=== PATIENT | female | born 1955 | race Caucasian/White ===

== ENCOUNTER 2021-01-18 11:42 | Outpatient (REF) | payer MEDICARE, SELFPAY ==
--- NOTE | ~2021-01-18 | XR_ITS ---
EXAMINATION: XR HIP, RIGHT CLINICAL INFORMATION: Right hip pain. COMPARISON: None TECHNIQUE: Two views of the right hip. FINDINGS: Bones and soft tissues are normal. No fracture. Alignment is anatomic. Hip joint space is maintained. XR/XR hip RT min 2V IMPRESSION: Unremarkable right hip exam.
== END 2021-01-18 11:43 | disposition home or self-care (01) ==
LOC: HO.HMGCX 11:42
PROVIDERS: PCP Internal Medicine; Visit Provider Internal Medicine
DX: M25.551 Pain in right hip (principal)
CPT/HCPCS: 73502

== ENCOUNTER → 2021-01-22 09:41 | Outpatient (BNVA) | payer MEDICARE, SELFPAY | PROVIDERS: PCP Internal Medicine; Visit Provider Physician Assistant | DX: M70.61 Trochanteric bursitis, right hip (principal) | CPT/HCPCS: 99202 ==

== ENCOUNTER 2021-07-08 07:27 | Outpatient (REF) | payer MEDICARE, SELFPAY ==
--- NOTE | ~2021-07-08 | MM_ITS ---
EXAMINATION: MM SCREENING DIGITAL BREAST TOMOSYNTHESIS, BILATERAL CLINICAL INFORMATION: Screening. Asymptomatic. The lifetime risk of breast cancer based on the Tyrer-Cuzick Model is 12%. COMPARISON: Mammography: 07/02/2020, 06/27/2019, 04/24/2018 TECHNIQUE: Digital breast tomosynthesis is performed in both the craniocaudal and mediolateral oblique views along with computer-aided detection (CAD). Synthesized 2D images are generated from the tomosynthesis. FINDINGS: The breasts are heterogeneously dense, which may obscure small masses (ACR BI-RADS breast composition Category c). Breast tissue composition borders on average fibroglandular. Scattered bilateral parenchymal asymmetries are stable. There is no developing density. No interval mass or architectural abnormality. Again, there are scattered punctate calcifications in both breasts. There are no significant changes. The axilla and skin contours are unremarkable. MM/MM tomosynthesis screening BI IMPRESSION: No mammographic evidence of malignancy. ASSESSMENT: BI-RADS 2: Benign RECOMMENDATION: Routine annual mammography screening. This patient's information was entered into a reminder system with a target due date for their next mammogram.
== END 2021-07-08 07:28 | disposition home or self-care (01) ==
LOC: HO.MAMMO 07:27
PROVIDERS: PCP Internal Medicine; Visit Provider Internal Medicine
DX: Z12.31 Encounter for screening mammogram for malignant neoplasm of breast (principal)
CPT/HCPCS: 77063; 77067

== ENCOUNTER 2021-09-13 06:26 | Outpatient (REF) | payer MEDICARE, SELFPAY ==
[2021-09-13 12:17] LABS: Vitamin D 25-OH Total 72.4 ng/mL (>30)
[2021-09-13 12:24] LABS: Alanine Aminotransferase 11 U/L (0-31); Anion Gap 14 (12-20); Aspartate Amino Transferase 17 U/L (5-31); Blood Urea Nitrogen 13 mg/dL (9-16); Calcium 9.2 mg/dL (8.4-10.2); Carbon Dioxide 28 mmol/L (22-29); Chloride 103 mmol/L (96-108); Cholesterol 214 mg/dL; Estimated Glomerular Filt Rate > 60; Glucose Fasting 74 mg/dL (60-99); HDL Cholesterol 81 mg/dL; LDL Cholesterol Calculated 113 mg/dl; Potassium 4.5 mmol/L (3.3-5.1); Sodium 140 mmol/L (135-145); Triglycerides 101 mg/dL
== END 2021-09-13 06:27 | disposition home or self-care (01) ==
LOC: HO.HMGCLDS 06:26
PROVIDERS: PCP Internal Medicine; Visit Provider Internal Medicine
DX: E78.5 Hyperlipidemia, unspecified (principal); I10 Essential (primary) hypertension; M85.852 Other specified disorders of bone density and structure, left thigh; Z78.0 Asymptomatic menopausal state
CPT/HCPCS: 36415; 80048; 80061; 82306; 84450; 84460

== ENCOUNTER 2022-07-28 08:44 | Outpatient (REF) | payer MEDICARE, SELFPAY ==
--- NOTE | ~2022-07-28 | MM_ITS ---
EXAMINATION: MM SCREENING DIGITAL BREAST TOMOSYNTHESIS, BILATERAL CLINICAL INFORMATION: Screening. Asymptomatic. The lifetime risk of breast cancer based on the Tyrer-Cuzick Model is 16%. COMPARISON: Mammography: 07/08/2021, 07/02/2020, 06/27/2019 TECHNIQUE: Digital breast tomosynthesis is performed in both the craniocaudal and mediolateral oblique views along with computer-aided detection (CAD). Synthesized 2D images are generated from the tomosynthesis. FINDINGS: There are scattered areas of fibroglandular density (ACR BI-RADS breast composition Category b). Parenchymal pattern is similar to prior exams. There is no interval mass or architectural abnormality or developing density. The axilla are unremarkable. Again, there are scattered bilateral punctate calcifications. Dermal calcifications again noted medial left breast. There are questionable increased loosely grouped round calcifications central 9:30 mid left breast. Patient will be recalled for additional imaging. MM/MM tomosynthesis screening BI IMPRESSION: Left: -Question increased loosely grouped calcifications central inner left breast. Right: -No mammographic evidence of malignancy. ASSESSMENT: BI-RADS 0: Incomplete - Need Additional Imaging Evaluation RECOMMENDATION: 1. Additional views of the left breast (magnification CC, magnification LM). 2. Radiology department staff will contact the patient for additional imaging. This patient's information was entered into a reminder system with a target due date for their next mammogram.
== END 2022-07-28 08:45 | disposition home or self-care (01) ==
LOC: HO.MAMMO 08:44
PROVIDERS: PCP Internal Medicine; Visit Provider Internal Medicine
DX: Z12.31 Encounter for screening mammogram for malignant neoplasm of breast (principal)
CPT/HCPCS: 77063; 77067

== ENCOUNTER 2022-08-10 14:03 | Outpatient (REF) | payer MEDICARE, SELFPAY ==
--- NOTE | ~2022-08-10 | MM_ITS ---
EXAMINATION: MM DIAGNOSTIC DIGITAL MAMMOGRAPHY, LEFT CLINICAL INFORMATION: Recall from screening for questionable increased loosely grouped round calcifications mid left breast. COMPARISON: Mammography: 07/28/2022, 07/08/2021, 07/02/2020 TECHNIQUE: Digital mammography is performed in the following views: Magnification left CC, magnification left LM. FINDINGS: There are scattered areas of fibroglandular density (ACR BI-RADS breast composition Category b). The additional magnification views show scattered isolated and small grouped round and rim calcifications. There are loosely grouped round calcifications 1:00 position slightly increased in number since 2019. They have a benign appearance similar to other calcifications and will be reassessed again in 6 months. Results are discussed with the patient at time of visit. MM/MM added views LT IMPRESSION: Loosely grouped benign-appearing round calcifications 1:00 position slightly increased from prior studies. ASSESSMENT: BI-RADS 3: Probably Benign RECOMMENDATION: Diagnostic left mammography in 6 months. This patient's information was entered into a reminder system with a target due date for their next mammogram.
== END 2022-08-10 14:04 | disposition home or self-care (01) ==
LOC: HO.MAMMO 14:03
PROVIDERS: PCP Internal Medicine; Visit Provider Internal Medicine
DX: R92.1 Mammographic calcification found on diagnostic imaging of breast (principal)
CPT/HCPCS: 77065

== ENCOUNTER 2023-02-07 14:27 | Outpatient (REF) | payer MEDICARE, SELFPAY ==
--- NOTE | ~2023-02-07 | MM_ITS ---
EXAMINATION: MM DIAGNOSTIC DIGITAL BREAST TOMOSYNTHESIS, LEFT CLINICAL INFORMATION: Short interval six-month follow-up probable benign loosely grouped calcifications central upper left breast. Family history breast cancer mother, sister, aunt. TC score 14. COMPARISON: Mammography: 08/10/2022, 07/28/2022 (BI-RADS 0), 07/08/2021, 07/02/2020, 06/27/2019 TECHNIQUE: Digital breast tomosynthesis is performed in both the craniocaudal and mediolateral oblique views along with computer-aided detection (CAD). Synthesized 2D images are generated from the tomosynthesis. Additional magnification left CC and magnification left ML views are obtained. FINDINGS: There are scattered areas of fibroglandular density (ACR BI-RADS breast composition Category b). Parenchymal pattern is similar to prior studies and there is no significant mass, developing density, architectural abnormality. There are some incidental benign dermal calcifications medial left breast. Some calcifications loosely grouped round central 11:00 position for follow-up are without significant change from prior studies. They have a benign appearance and will be reassessed again at time of annual bilateral mammography, due in 6 months. Results are provided to the patient at time of visit by the technologist. MM/MM tomosynthesis diagnostic LT IMPRESSION: -No mammographic evidence of malignancy. -Calcifications for follow-up no significant changes from prior exams. ASSESSMENT: BI-RADS 3: Probably Benign RECOMMENDATION: Diagnostic mammography at time of annual bilateral exam, due in 6 months. This patient's information was entered into a reminder system with a target due date for their next mammogram.
--- NOTE | ~2023-02-07 | MM_ITS ---
EXAMINATION: BONE DENSITOMETRY CLINICAL INDICATION: Other specified disorders of bone density and structure, left thigh. COMPARISON: Previous BD dated 07/02/2020 and baseline BD dated 10/22/2007. TECHNIQUE: Using a [employer] DXA System (software version: 13.1) manufactured by [employer], dual-energy x-ray absorptiometry was performed of the lumbar spine and left hip. The images are of good technical quality. Summary results are attached. FINDINGS: AP SPINE L1-L4: Current: BMD 1.064 g/cm2, Z-score 1.0, T-score -1.0, normal, 1.8% decrease from previous, 10.7% decrease from baseline (<5% change is not significant). Prior: BMD 1.084 g/cm2. Baseline: BMD 1.191 g/cm2. LEFT FEMUR, NECK: Current: BMD 0.746 g/cm2, Z-score -0.3, T-score -2.1, osteopenia. Prior: BMD 0.769 g/cm2. Baseline: BMD 0.856 g/cm2. LEFT FEMUR, TOTAL: Current: BMD 0.804 g/cm2, Z-score 0.0, T-score -1.6, osteopenia, 5.9% decrease from previous, 17.3% decrease from baseline (<5% change is not significant). Prior: BMD 0.854 g/cm2. Baseline: BMD 0.972 g/cm2. IDENTIFIED RISK FACTORS: Menopause. HISTORY OF FRACTURE: None listed. MEDICATIONS: Vitamin D. MM/XR DEXA axial skeleton IMPRESSION: 1. DIAGNOSIS: Osteopenia based on the lowest T-score value of -2.1 in the femoral neck applying World Health Organization criteria. 2. 10-YEAR FRACTURE RISK PREDICTION, FRAX: Major osteoporotic fracture (clinical spine, forearm, hip or shoulder) 10.8%. Hip fracture 2.2%. 3. Treatment Recommendations: NOF guidelines recommend consideration for treatment in postmenopausal women and men age 50 and older presenting with the following: -A hip or vertebral (clinical or morphometric) fracture. -T-score less than or equal to -2.5 at the femoral neck or spine after appropriate evaluation to exclude secondary causes. -Low bone mass at the hip or spine and a 10-year fracture probability by FRAX of greater than or equal to 3% for hip fracture or greater than or equal to 20% for major osteoporotic fracture based on the [place] adapted WHO algorithm. 4. Other Recommendations: All treatment decisions require clinical judgment and consideration of individual patient factors, including patient preferences, comorbidities, previous drug use, risk factors not captured in the FRAX model (e.g. frailty, falls, vitamin D deficiency, increased bone turnover, interval significant decline in bone density) and possible under or overestimation of fracture risk by FRAX. Additional medical evaluation for secondary cause of low bone mineral density may be appropriate. FUTURE SCAN RECOMMENDATION: People with diagnosed cases of osteoporosis or at high risk for fracture should have regular bone mineral density tests. For patients eligible for Medicare, routine testing is allowed once every 2 years. The testing frequency can be increased to one year for patients who have rapidly progressing disease, those who are receiving or discontinuing medical therapy to restore bone mass, or have additional risk factors.
== END 2023-02-07 14:28 | disposition home or self-care (01) ==
LOC: HO.MAMMO 14:27
PROVIDERS: Visit Provider Internal Medicine
DX: R92.1 Mammographic calcification found on diagnostic imaging of breast (principal); Z13.820 Encounter for screening for osteoporosis; Z78.0 Asymptomatic menopausal state; M85.852 Other specified disorders of bone density and structure, left thigh
CPT/HCPCS: 77061; 77065; 77080

== ENCOUNTER 2023-04-25 12:57 | Outpatient (AMB) | payer MEDICARE, SELFPAY ==
--- NOTE | 2023-04-25 13:01 | A.OFFPC_ITS ---
Vital Signs 04/25/23 13:02 Height 5 ft 4.5 in Weight 125 lb BMI 21.1 BP 110/68 Blood Pressure Location Lt brachial Position Sitting Pulse 70 Pulse Source Pulse Oximeter Pulse Oximetry (%) 100 Oxygen Delivery Method Room Air Intake Visit Reasons: 6 Month follow up HTN Intake Note: Patient here for routine follow up for hypertension. Allergies No Known Allergies Allergy (Verified 04/25/23 13:31) Medication List - Last Reconciled 04/25/23 by Kayla Parekh MD lisinopril-hydrochlorothiazide 10-12.5 mg 1 tab PO DAILY lorazepam 0.5 mg PO DAILY PRN Tobacco use date assessed: 04/25/23 Fall risk assessment: No Falls in past year Last assessed Fall Risk: 04/25/23 HPI 6 Month follow up HTN HPI Details 68-year-old lady with hypertension, here today for follow-up. Currently on lisinopril-HCTZ 10-12.5 mg tablet which he takes once a day in a.m., compliant with taking medications and has been compliant with a low-salt diet and gets regular exercise. Blood pressure today is within normal limits. No new complaints at present time [facility] Medical History Lateral pain of right hip Anxiety Osteopenia of left femoral neck Menopause Dyslipidemia Essential hypertension Surgical History History of appendectomy Family History Father HTN (hypertension) Oral cancer Raynauds phenomenon Mother HTN (hypertension) Alcoholism Breast cancer Maternal Grandmother Alcoholism Sister No problems noted. Social History Alcohol intake: current Patient Tobacco Use Status: Former Tobacco user Current occupational status: retired Hearing needs: No Vision needs: Yes Questionnaire AUDIT C Alcohol Use Questionnaire (AUDIT-C) 1. How often do you have a drink containing alcohol?: 2-3 times a week 2. How many drinks containing alcohol do you have on a typical day when you are drinking?: 1 or 2 3. How often do you have six or more drinks on one occasion?: Never Total Score: 3 Score Reviewed/Action Taken: No Review of Systems Const Denies fatigue and Denies weakness ENT Reports no additional complaints Card Denies chest pain, Denies chest pain at rest, Denies irregular heart rhythm, Denies lightheadedness, Denies dyspnea and Denies dyspnea on exertion Resp Denies chest congestion, Denies cough, Denies dyspnea and Denies dyspnea on exertion GI Denies change in bowel habits Musc Denies back pain, Denies joint swelling and Denies muscle weakness Neuro Denies weakness Endo Denies fatigue Physical exam (Primary Care) Vital Signs: Last Vital Signs Pulse 70 04/25/23 13:02 BP 110/68 04/25/23 13:02 Pulse Ox 100 04/25/23 13:02 Oxygen Delivery Method Room Air 04/25/23 13:02 BMI result Body Mass Index 21.1 Tobacco/Smoking Status: Tobacco use Status Tobacco use date assessed 04/25/23 04/25/23 13:05 Patient Tobacco Use Status Former Tobacco user 04/25/23 13:05 Const General: comfortable, no acute distress and alert Orientation/consciousness: patient oriented x3 HENMT Ears: external ears normal General nose exam: Normal external nose present Mouth: oropharynx normal and moist mucous membranes Eyes General: appearance normal, both eyes and all related structures Neck Neck: Yes full ROM, Yes no lymphadenopathy and Yes supple Resp Effort & Inspection: normal respiratory effort and able to speak in complete sentences Auscultation: clear to auscultation bilaterally Cardio Rate: regular rate Rhythm: regular rhythm Heart sounds: S1 normal heart sound present and S2 normal heart sound present GI Palpation (GI): Soft to palpation, nontender and no masses Auscultation: normal bowel sounds Neuro General: patient oriented x3, gait normal, tone normal, moves all extremities, Normal light touch and pain sensation and no focal motor deficits Cranial nerves: Yes CN's II-XII intact bilaterally Cognition (Neuro): normal cognition Extrem General: Yes full ROM, Yes no joint enlargement, Yes no clubbing, cyanosis or edema and Yes no calf tenderness Assessment and Plan Assessment & Plan (1) Dyslipidemia: Code(s): E78.5 - Hyperlipidemia, unspecified (2) Essential hypertension: Code(s): I10 - Essential (primary) hypertension Plan Blood pressure is stable and controlled on present treatment continue with healthy eating habits and getting regular exercise. Will check a basic metabolic panel, lipids and liver enzymes. Orders: Orders Alanine Aminotransferase 05/01/23 E78.5 - Hyperlipidemia, unspecified, I10 - Essential (primary) hypertension, M85.852 - Other specified disorders of bone density and structure, left thigh, Z78.0 - Asymptomatic menopausal state Vitamin D 25-OH Total 05/01/23 E78.5 - Hyperlipidemia, unspecified, I10 - Essential (primary) hypertension, M85.852 - Other specified disorders of bone density and structure, left thigh, Z78.0 - Asymptomatic menopausal state Basic Metabolic Panel Fasting 05/01/23 E78.5 - Hyperlipidemia, unspecified, I10 - Essential (primary) hypertension, M85.852 - Other specified disorders of bone density and structure, left thigh, Z78.0 - Asymptomatic menopausal state Lipid Panel 05/01/23 E78.5 - Hyperlipidemia, unspecified, I10 - Essential (primary) hypertension, M85.852 - Other specified disorders of bone density and structure, left thigh, Z78.0 - Asymptomatic menopausal state Aspartate Amino Transferase 05/01/23 E78.5 - Hyperlipidemia, unspecified, I10 - Essential (primary) hypertension, M85.852 - Other specified disorders of bone density and structure, left thigh, Z78.0 - Asymptomatic menopausal state Coding Level of Care Code Est Pt Level 3 (84984) Diagnoses Dyslipidemia E78.5 Essential hypertension I10
[2023-04-25 13:02] VITALS: BP 110/68; PULSE 70; O2SAT 100; BMI 21.1
== END 2023-04-25 13:44 | disposition home or self-care (01) ==
LOC: HO.HMGC 12:57
PROVIDERS: PCP Internal Medicine; Visit Provider Internal Medicine
DX: E78.5 Hyperlipidemia, unspecified (principal); I10 Essential (primary) hypertension
CPT/HCPCS: 99213

== ENCOUNTER 2023-05-01 07:47 | Outpatient (REF) | payer MEDICARE, SELFPAY ==
[2023-05-01 12:08] LABS: Alanine Aminotransferase 13 U/L (0-31); Anion Gap 13 (12-20); Aspartate Amino Transferase 17 U/L (5-31); Blood Urea Nitrogen 15 mg/dL (9-16); Calcium 9.5 mg/dL (8.4-10.2); Carbon Dioxide 29 mmol/L (22-29); Chloride 101 mmol/L (96-108); Cholesterol 213 mg/dL; Estimated Glomerular Filt Rate > 60; Glucose Fasting 84 mg/dL (60-99); HDL Cholesterol 70 mg/dL; LDL Cholesterol Calculated 126 mg/dl; Potassium 4.3 mmol/L (3.3-5.1); Sodium 139 mmol/L (135-145); Triglycerides 85 mg/dL
[2023-05-01 12:14] LABS: Vitamin D 25-OH Total 47.7 ng/mL (>30)
== END 2023-05-01 07:48 | disposition home or self-care (01) ==
LOC: HO.HMGCLDS 07:47
PROVIDERS: PCP Internal Medicine; Visit Provider Internal Medicine
DX: E78.5 Hyperlipidemia, unspecified (principal); I10 Essential (primary) hypertension; M85.852 Other specified disorders of bone density and structure, left thigh; Z78.0 Asymptomatic menopausal state
CPT/HCPCS: 36415; 80048; 80061; 82306; 84450; 84460

== ENCOUNTER 2023-07-27 14:42 | Outpatient (REF) | payer MEDICARE, SELFPAY ==
--- NOTE | ~2023-07-27 | MM_ITS ---
EXAMINATION: MM DIAGNOSTIC DIGITAL BREAST TOMOSYNTHESIS, BILATERAL CLINICAL INFORMATION: Diagnostic for 6 month follow-up left breast calcifications. Patient also due for bilateral screening. COMPARISON: Mammography: 02/07/2023, 08/10/2022, 07/28/2022, 07/08/2021, and dating back to 2018. TECHNIQUE: Digital breast tomosynthesis is performed in both the craniocaudal and mediolateral oblique views along with computer-aided detection (CAD). Synthesized 2D images are generated from the tomosynthesis. In addition, 2-D left magnification CC and ML views were performed. FINDINGS: There are scattered areas of fibroglandular density (ACR BI-RADS breast composition Category b). There are stable essentially punctate grouped calcifications in the slightly medial slightly upper left breast, middle one third, which have a nonaggressive appearance and are probably benign. No significant pleomorphism, linear or casting forms, or suspicious morphology. Although grouped, they have a rounded punctate morphology. Findings are probably benign. Six-month interval follow-up left breast mammography recommended to ensure stability including standard magnification views. Otherwise, there are no suspicious masses, suspicious grouped calcifications, or areas of architectural distortion in either breast. The parenchymal pattern is stable from prior exams. MM/MM tomosynthesis diagnostic BI IMPRESSION: Probably benign calcifications left breast upper and medial aspect, middle one third. Recommend six-month interval follow-up mammography including standard magnification views to ensure stability. No suspicious findings in the right breast. ASSESSMENT: BI-RADS BI-RADS 3 - Probably benign finding(s) - 6 month follow-up suggested RECOMMENDATION: 6 Month F/U Results were provided to the patient at time of visit by the technologist. This patient's information was entered into a reminder system with a target due date for their next mammogram.
== END 2023-07-27 14:43 | disposition home or self-care (01) ==
LOC: HO.MAMMO 14:42
PROVIDERS: PCP Internal Medicine; Visit Provider Internal Medicine
DX: R92.1 Mammographic calcification found on diagnostic imaging of breast (principal)
CPT/HCPCS: 77062; 77066

== ENCOUNTER → 2023-07-27 15:00 | Outpatient (BNV) | payer MEDICARE, SELFPAY | PROVIDERS: PCP Internal Medicine; Visit Provider Radiology Diagnostic Radiology | DX: R92.1 Mammographic calcification found on diagnostic imaging of breast (principal) | CPT/HCPCS: 77062; 77066; G0279 ==

== ENCOUNTER 2023-10-24 07:02 | Outpatient (REF) | payer MEDICARE, SELFPAY ==
[2023-10-24 11:38] LABS: Alanine Aminotransferase 10 U/L (0-31); Aspartate Amino Transferase 16 U/L (5-31); Cholesterol 208 mg/dL (<200); HDL Cholesterol 69 mg/dL (>40); LDL Cholesterol Calculated 122 mg/dL (<100); Triglycerides 86 mg/dL (<150)
== END 2023-10-24 07:03 | disposition home or self-care (01) ==
LOC: HO.HMGCLDS 07:02
PROVIDERS: PCP Internal Medicine; Visit Provider Internal Medicine
DX: M85.852 Other specified disorders of bone density and structure, left thigh (principal); E78.5 Hyperlipidemia, unspecified; Z78.0 Asymptomatic menopausal state
CPT/HCPCS: 36415; 80061; 82306; 84450; 84460

== ENCOUNTER 2023-10-26 10:37 | Outpatient (AMB) | payer MEDICARE, SELFPAY ==
[2023-10-26 11:17] VITALS: BP 110/62; PULSE 65; O2SAT 100; BMI 21.3
--- NOTE | 2023-10-26 11:17 | A.OFFPC_ITS ---
Vital Signs 10/26/23 11:17 Height 5 ft 4.5 in Weight 126 lb 4 oz BMI 21.3 BP 110/62 Blood Pressure Location Rt brachial Position Sitting Pulse 65 Pulse Source Pulse Oximeter Pulse Oximetry (%) 100 Oxygen Delivery Method Room Air Intake Visit Reasons: 6 month follow up Intake Note: Pt is here to follow up for lab results Allergies No Known Allergies Allergy (Verified 10/26/23 11:30) Medication List - Last Reconciled 10/26/23 by Kayla Parekh MD lisinopril-hydrochlorothiazide 10-12.5 mg 1 tab PO DAILY lorazepam 0.5 mg PO DAILY PRN Tobacco use date assessed: 10/26/23 Fall risk assessment: No Falls in past year Last assessed Fall Risk: 10/26/23 Dental Screening Dental Screen Date: 10/26/23 Did you have a dental visit in the last 12 months?: Yes Did you have a dental problem in the last 6 months where you did not have access to dental care?: No Was dental information given to patient?: Patient has dentist HPI 6 month follow up HPI Details 68-year-old lady here today for follow-u p on her lipids. Has been following a low-cholesterol diet and has been exercising regularly recent fasting labs showed improvement in her total cholesterol and LDL cholesterol level, with normal triglycerides and HDL cholesterol . Vitamin-D level also on recent labs was within normal limits. Complaining of dry itchy skin on right forearm. Has been applying regular Eucerin cream which affords only temporary relief. [facility] Medical History (Updated 10/26/23 @ 11:42 by Kayla Parekh MD) Dry skin dermatitis Lateral pain of right hip Anxiety Osteopenia of left femoral neck Menopause Dyslipidemia Essential hypertension Surgical History History of appendectomy Family History Father HTN (hypertension) Oral cancer Raynauds phenomenon Mother HTN (hypertension) Alcoholism Breast cancer Maternal Grandmother Alcoholism Sister No problems noted. Social History Alcohol intake: current Patient Tobacco Use Status: Former Tobacco user e-Cigarette/Vaping Use: Never Used Second Hand Smoke Exposure: No Current occupational status: retired Hearing needs: No Vision needs: Yes Questionnaire PHQ-9 Over the last 2 weeks, how often have you been bothered by any of the following problems? 1. Little interest or pleasure in doing things: not at all 2. Feeling down, depressed, or hopeless: not at all 3. Trouble falling or staying asleep, or sleeping too much: not at all 4. Feeling tired or having little energy: not at all 5. Poor appetite or overeating: not at all 6. Feeling bad about yourself - or that you are a failure or have let yourself or your family down: not at all 7. Trouble concentrating on things, such as reading the newspaper or watching television: not at all 8. Moving or speaking so slowly that other people could have noticed. Or the opposite - being so fidgety or restless that you have been moving around a lot more than usual: not at all 9. Thoughts that you would be better off or of hurting yourself in some way: not at all Total score: 0 Depression Screening Interpretation: Negative Depression Screening Done: Yes 49618 - PHQ-9 Billing: Yes Source: Developed by Drs. Markel Hernandez, Cydney Padgett, Javon Tinoco and colleagues, with an educational stefan from [employer]. Thrive Questionnaire Date Thrive assessed: 10/26/23 I am a: Patient What is your living situation today?: I have a steady place to live Within the past 12 months, did the food you bought not last and you didn't have the money to get more?: Never true Within the past 12 months, did you worry whether your food would run out before you got money to buy more?: Never true Do you have trouble paying for medicines?: No Do you have trouble getting transportation to medical appointments?: No Do you have trouble paying your heating and electricity bill?: No Do you have trouble taking care of your child, family member or friend?: No Do you have trouble with day-to-day activities such as bathing, preparing meals, shopping, managing finances, etc.?: No Are you currently unemployed and looking for a job?: No Are you interested in more education?: No AUDIT C Alcohol Use Questionnaire (AUDIT-C) 1. How often do you have a drink containing alcohol?: Never Total Score: 0 RAMONA-7 AMB Questionnaire RAMONA-7 Date RAMONA - 7 assessed: 10/26/23 Feeling nervous, anxious, or on edge: 0 = Not at all Not being able to stop or control worryin = Not at all Worrying too much about different things: 0 = Not at all Trouble relaxin = Not at all Being so restless that it is hard to sit still: 0 = Not at all Becoming easily annoyed or irritable: 0 = Not at all Feeling afraid as if something awful might happen: 0 = Not at all Total RAMONA-7 score (0-4 normal; 5-9 mild; 10-14 moderate; 15-21 severe): 0 Source: Developed by Drs. Markel Hernandez, Cydney Padgett, Javon Tinoco and colleagues, with an educational stefan from [employer]. RAMONA-7 Assessment Billing RAMONA-7 Assessment Tool: RAMONA-7 Assessment 26353 Review of Systems Const Denies fatigue and Denies weakness ENT Reports no additional complaints Card Denies chest pain, Denies chest pain at rest, Denies irregular heart rhythm, Denies lightheadedness, Denies dyspnea and Denies dyspnea on exertion Resp Denies chest congestion, Denies cough, Denies dyspnea and Denies dyspnea on exertion GI Denies change in bowel habits Musc Denies back pain, Denies joint swelling and Denies muscle weakness Skin/Breast Reports as per HPI Neuro Denies weakness Endo Denies fatigue Physical exam (Primary Care) Vital Signs: Last Vital Signs Pulse 65 10/26/23 11:17 BP 110/62 10/26/23 11:17 Pulse Ox 100 10/26/23 11:17 Oxygen Delivery Method Room Air 10/26/23 11:17 BMI result Body Mass Index 21.3 Tobacco/Smoking Status: Tobacco use Status Tobacco use date assessed 10/26/23 10/26/23 11:19 Patient Tobacco Use Status Former Tobacco user 10/26/23 11:17 e-Cigarette/Vaping Use Never Used 10/26/23 11:19 Depression Screening Interpretation: Negative Const General: comfortable, no acute distress and alert Orientation/consciousness: patient oriented x3 Eyes General: appearance normal, both eyes and all related structures Neck Neck: Yes full ROM, Yes no lymphadenopathy and Yes supple Resp Effort & Inspection: normal respiratory effort and able to speak in complete sentences Auscultation: clear to auscultation bilaterally Cardio Rate: regular rate Rhythm: regular rhythm Heart sounds: S1 normal heart sound present and S2 normal heart sound present Skin Other: Dry skin noted on both forearms right more than the left Neuro General: patient oriented x3, gait normal, tone normal, moves all extremities, Normal light touch and pain sensation and no focal motor deficits Cranial nerves: Yes CN's II-XII intact bilaterally Cognition (Neuro): normal cognition Gait exam (Neuro): Normal gait present Extrem General: Yes full ROM, Yes no joint enlargement, Yes no clubbing, cyanosis or edema and Yes no calf tenderness Results Reviewed Results Reviewed: RUN: 10/26/23 1129 PAGE 1 [facility] [address] [place] [id number] Loom Changeover Operator: Rubens Meyers M.D. Specimen Inquiry Name: AraOlimpia Powers Age/Sex: 68/F : 1955 [place] [id number] Unit#: [id number] Attend Dr: Kayla Parekh MD Re10/24/23 Status: DEP [facility] Disch: SPEC : [id number] SHIMA: 10/24/23 STATUS: COMP REQ : [id number] RECD: 10/24/[address]: Kayla Parekh MD COMP: 10/24/23 ENTERED: 10/24/[address] [facility] DR: ORDERED: AST, ALT, Lipid Panel, Vitamin D 25-OH Test Result Flag Reference Site AST (GOT) 16 5-31 U/L ALT (GPT) 10 0-31 U/L Triglyceride 86 <150 mg/dL Desirable Triglyceride: less than 150 mg/dL Borderline High Triglyceride 150-199 mg/dL High Triglyceride: 200-499 mg/dL Very High Triglyceride: greater than or equal to 5OO mg/dL Cholesterol 208 H <200 mg/dL Desirable Cholesterol: less than 200 mg/dL Borderline High Cholesterol: 200-239 mg/dL High Cholesterol: greater than 239 mg/dL LDL Calculated 122 H <100 mg/dL Desirable LDL: less than 100 mg/dL Near Optimal/Above Optimal LDL: 110-129 mg/dL Borderline High LDL: 130-159 mg/dL High LDL: 160-189 mg/dL Very High LDL: greater than or equal to 190 mg/dL HDL 69 >40 mg/dL Desirable HDL: greater than 40 mg/dL Note: This HDL assay may give artificially low results in patients with liver disease. Vit D 25-OH Tot 82.0 >30 ng/mL Health Based Reference Values* < 20 ng/mL Deficient 20-30 ng/mL Insufficient > 30 ng/mL Sufficient Assessment and Plan Assessment & Plan (1) Dyslipidemia: Code(s): E78.5 - Hyperlipidemia, unspecified Plan: Reviewed recent fasting lipid profile with patient with improving total cholesterol and LDL cholesterol levels as compared to last check . Continue withadherence to low-cholesterol diet and regular exercise, at least 30 minutes 3 to 4 times a week. Advised patient to make healthy food choices, eat more fruits, vegetables, whole grains, wild caught fish and low-fat dairy. Limit amount of meat and fried or fatty food products, as well as processed foods and fast foods. (2) Essential hypertension: Code(s): I10 - Essential (primary) hypertension Plan: Blood pressure at goal of less than 130/80. Continue with current medication. Reinforced importance of following a low sodium diet, getting regular exercise, and lowering stress levels. (3) Dry skin dermatitis: Code(s): L85.3 - Xerosis cutis Patient Instructions: Apply liberally Eucerin cream eczema or Cetaphil cream or CeraVe cream to skin immediately after taking a bath and at night Coding Level of Care Code Est Pt Level 3 (68702) Diagnoses Dyslipidemia E78.5 Essential hypertension I10 Dry skin dermatitis L85.3 Additional Codes RAMONA-7 Assessment Billing - RAMONA-7 Assessment Tool: RAMONA-7 Assessment 09455 ([id number])
== END 2023-10-26 11:55 | disposition home or self-care (01) ==
PROVIDERS: PCP Internal Medicine; Visit Provider Internal Medicine
DX: E78.5 Hyperlipidemia, unspecified (principal); I10 Essential (primary) hypertension; L85.3 Xerosis cutis
CPT/HCPCS: 99213

== ENCOUNTER 2024-01-30 10:43 | Outpatient (REF) | payer MEDICARE, SELFPAY ==
--- NOTE | ~2024-01-30 | MM_ITS ---
EXAMINATION: MM DIAGNOSTIC DIGITAL MAMMOGRAPHY, LEFT CLINICAL INFORMATION: Six-month follow-up (third) for central left breast calcifications, probably benign. COMPARISON: Mammography: 07/27/2023, 02/07/2023, 08/10/2022, 07/28/2022 (BI-RADS 0), 07/08/2021, and dating back to 2018. TECHNIQUE: Digital mammography is performed in craniocaudal and mediolateral oblique views along with computer-aided detection (CAD). In addition, full-field left 90 degree 3-D mediolateral view was performed, as well as 2-D spot magnification left CC and ML views. FINDINGS: There are scattered areas of fibroglandular density (ACR BI-RADS breast composition Category b). There are stable essentially punctate grouped calcifications in the slightly medial slightly upper left breast, middle one third, which appear to localize to the skin on tomographic imaging and are thus benign. They are unchanged in morphology, number, and appearance. No further follow-up recommended. Otherwise, there are no suspicious masses, suspicious new grouped calcifications, or areas of architectural distortion in the left breast. The parenchymal pattern is stable from prior examinations. No skin or axillary abnormalities. MM/MM diagnostic mammo unilat LT IMPRESSION: There are no findings in the left breast suspicious for malignancy. Calcifications in the slightly medial upper left breast localize to the skin on tomographic imaging, and are cutaneous in origin, as well as unchanged in morphology and number. These findings are benign and no further follow-up is recommended. Recommend the patient return to screening in 6 months when due for bilateral routine screening. ASSESSMENT: BI-RADS BI-RADS 2 - Benign Findings RECOMMENDATION: 1 year F/U This patient's information was entered into a reminder system with a target due date for their next mammogram.
== END 2024-01-30 10:44 | disposition home or self-care (01) ==
LOC: HO.MAMMO 10:43
PROVIDERS: PCP Internal Medicine; Visit Provider Internal Medicine
DX: R92.1 Mammographic calcification found on diagnostic imaging of breast (principal)
CPT/HCPCS: 77062; 77065

== ENCOUNTER → 2024-01-30 11:00 | Outpatient (BNV) | payer MEDICARE, SELFPAY | PROVIDERS: PCP Internal Medicine; Visit Provider Radiology Diagnostic Radiology | DX: R92.1 Mammographic calcification found on diagnostic imaging of breast (principal) | CPT/HCPCS: 77065 ==

== ENCOUNTER 2024-02-07 09:33 | Outpatient (AMB) | payer MEDICARE, SELFPAY ==
[2024-02-07 09:34] VITALS: BP 112/70; PULSE 75; TEMP 36.6; O2SAT 99; BMI 21.8
--- NOTE | 2024-02-07 09:34 | AM.OFFWIN_ITS ---
Intake Vital Signs 3 02/07/24 09:34 Height 5 ft 4.5 in Weight 129 lb BMI 21.8 BP 112/70 Blood Pressure Location Lt brachial Position Sitting Pulse 75 Pulse Source Pulse Oximeter Temp 97.9 F Temp Source Temporal Artery Scan Pulse Oximetry (%) 99 Intake Visit Reasons: EP Tick bite RT side (lobby) Intake Note: pt is here today tick bit rt side started today. pt gave verbal consent to leave with results Patient Tobacco Use Status: Former Tobacco user Allergies No Known Allergies Allergy (Verified 02/07/24 09:39) Do you need a note to return to daycare/school/sports/work: No HPI HPI Comments 2 History of Present Illness0 Details 68 y/o female who presents to walk in [facility] with c/o Tick Bite. Pt was working in her yard this morning, when she felt a sting right lower abdomen. She noticed a small Tick. removed the Tick, but head was left embedded under skin. [facility] Medical History (Updated 10/26/23 @ 11:42 by Kayla Parekh MD) Dry skin dermatitis Lateral pain of right hip Anxiety Osteopenia of left femoral neck Menopause Dyslipidemia Essential hypertension Surgical History History of appendectomy Family History Father HTN (hypertension) Oral cancer Raynauds phenomenon Mother HTN (hypertension) Alcoholism Breast cancer Maternal Grandmother Alcoholism Sister No problems noted. Social History Alcohol intake: current Patient Tobacco Use Status: Former Tobacco user e-Cigarette/Vaping Use: Never Used Second Hand Smoke Exposure: No Current occupational status: retired Hearing needs: No Vision needs: Yes Review of Systems Const All systems reviewed & are unremarkable except as noted in HPI and below Physical Exam Vital Signs: Last Vital Signs Temp 97.9 F 02/07/24 09:34 Pulse 75 02/07/24 09:34 BP 112/70 02/07/24 09:34 Pulse Ox 99 02/07/24 09:34 BMI result Body Mass Index 21.8 Const General: comfortable and no acute distress Orientation/consciousness: patient oriented x3 GI Abdomen image: 2 1. Small 1 mm black tip embedded under abdominal skin Neuro General: patient oriented x3 and gait normal Psych Speech and movement: Normal speech and movement present Attitude: cooperative Assessment & Plan Assessment & Plan (1) Tick bite of abdominal wall: Code(s): S30.861A - Insect bite (nonvenomous) of abdominal wall, initial encounter; W57.XXXA - Bitten or stung by nonvenomous insect and other nonvenomous arthropods, initial encounter Qualifiers: Encounter type: initial encounter Qualified Code(s): S30.861A - Insect bite (nonvenomous) of abdominal wall, initial encounter; W57.XXXA - Bitten or stung by nonvenomous insect and other nonvenomous arthropods, initial encounter Plan: - Removed 1mm black Tip right lower abdomen. - Clean Skin and applied some topical Abx - Doxy 200 mg (1 dose) for Lyme Prophylaxis - Pt tolerated well Medications: New 2 doxycycline hyclate 200 mg PO DAILY 1 tab 0RF lyme prophylaxis S30.861A - Insect bite (nonvenomous) of abdominal wall, initial encounter, W57.XXXA - Bitten or stung by nonvenomous insect and other nonvenomous arthropods, initial encounter Coding Level of Care Code Est Pt Level 3 (94062) Diagnoses Tick bite of abdominal wall, initial encounter S30.861A; W57.XXXA Encounter type: initial encounter Time Spent (min) 15 Comment
== END 2024-02-07 12:08 | disposition home or self-care (01) ==
PROVIDERS: PCP Internal Medicine; Visit Provider Nurse Practitioner Family
DX: S30.861A Insect bite (nonvenomous) of abdominal wall, initial encounter (principal); W57.XXXA Bitten or stung by nonvenomous insect and other nonvenomous arthropods, initial encounter
CPT/HCPCS: 99213

== ENCOUNTER 2024-10-07 08:34 | Outpatient (AMB) | payer MEDICARE, SELFPAY ==
--- NOTE | 2024-10-07 08:37 | MHC.OFFWIV ---
Intake Vital Signs 10/07/24 08:39 Weight 129 lb BP 130/80 Blood Pressure Location Rt brachial Pulse 70 Pulse Source Pulse Oximeter Pulse Oximetry (%) 98 Oxygen Delivery Method Room Air Intake Visit Reasons: EP ? bumps on the head Intake Note: Patient here for small bumps on scalp that have been present for about 2 months. Patient Tobacco Use Status: Former Tobacco user Allergies No Known Allergies Allergy (Verified 10/07/24 08:39) Do you need a note to return to daycare/school/sports/work: No HPI EP ? bumps on the head HPI Details This note is constructed using voice recognition software. While every effort has been made to ensure accuracy, sample maker original errors may have been included. The patient is a 69 year old female who presents to the clinic today with bumps on her head. She reports that she noticed them about 2 months ago, they have never been painful, itchy, draining anything. She recently had her hair done, and her hairdresser advised that she be seen as she did not know what they were. She has not reported this to her primary care provider. [facility] Medical History (Updated 10/26/23 @ 11:42 by Kayla Parekh MD) Dry skin dermatitis Lateral pain of right hip Anxiety Osteopenia of left femoral neck Menopause Dyslipidemia Essential hypertension Surgical History History of appendectomy Family History Father HTN (hypertension) Oral cancer Raynauds phenomenon Mother HTN (hypertension) Alcoholism Breast cancer Maternal Grandmother Alcoholism Sister No problems noted. Social History Alcohol intake: current Patient Tobacco Use Status: Former Tobacco user e-Cigarette/Vaping Use: Never Used Second Hand Smoke Exposure: No Current occupational status: retired Hearing needs: No Vision needs: Yes Review of Systems Const All systems reviewed & are unremarkable except as noted in HPI and below Physical Exam Vital Signs: Last Vital Signs Pulse 70 10/07/24 08:39 BP 130/80 10/07/24 08:39 Pulse Ox 98 10/07/24 08:39 Oxygen Delivery Method Room Air 10/07/24 08:39 Const General: cooperative, healthy appearing, comfortable, no acute distress and well developed Orientation/consciousness: patient oriented x3 Limitations: no limitations Resp Effort & Inspection: normal respiratory effort and able to speak in complete sentences Skin Other: Left anterior scalp approximately 2 cm from hairline with small, 2 mm raised lesion with pearly appearance and centralized umbilication. Similar there lesion right posterior scalp approximately 3 cm posterior to right pinna with pearly appearance and centralized umbilication, approximately 2 mm raised lesion. Neuro General: patient oriented x3 Assessment & Plan Assessment & Plan (1) Skin lesion: Code(s): L98.9 - Disorder of the skin and subcutaneous tissue, unspecified Plan: To separately identifiable lesions, consistent with likely BCC. Advised referral to Dermatology for full diagnostics and treatment plan. Referral placed, advised patient to follow up that this referral has been completed. Plan See above for full details and plan. Orders: Referrals Dermatology Referral L98.9 - Disorder of the skin and subcutaneous tissue, unspecified Coding Level of Care Code Est Pt Level 4 (65170) Diagnoses Skin lesion L98.9
[2024-10-07 08:39] VITALS: BP 130/80; PULSE 70; O2SAT 98
== END 2024-10-07 09:22 | disposition home or self-care (01) ==
PROVIDERS: PCP Internal Medicine; Visit Provider Registered Nurse
DX: L98.9 Disorder of the skin and subcutaneous tissue, unspecified (principal)

== ENCOUNTER → 2024-10-07 08:34 | Outpatient (BNVA) | payer MEDICARE, SELFPAY | PROVIDERS: PCP Internal Medicine; Visit Provider Registered Nurse | DX: L98.9 Disorder of the skin and subcutaneous tissue, unspecified (principal) | CPT/HCPCS: 99212 ==

== ENCOUNTER 2024-10-24 07:55 | Outpatient (AMB) | payer MEDICARE, SELFPAY ==
[2024-10-24 07:59] VITALS: BP 115/70; PULSE 87; O2SAT 98; BMI 21.8
--- NOTE | 2024-10-24 07:59 | MHC.PC.OV ---
Vital Signs 10/24/24 07:59 Height 5 ft 4.5 in Weight 129 lb BMI 21.8 BP 115/70 Blood Pressure Location Rt brachial Position Sitting Pulse 87 Pulse Source Pulse Oximeter Pulse Oximetry (%) 98 Oxygen Delivery Method Room Air Intake Visit Reasons: Bumps in the head Intake Note: Pt is here today c/o bump like pimple on head Allergies No Known Allergies Allergy (Verified 10/24/24 08:47) Medication List - Last Reconciled 10/24/24 by Kayla Parekh MD lisinopril-hydrochlorothiazide 10-12.5 mg 1 tab PO DAILY lorazepam 0.5 mg PO DAILY PRN Tobacco use date assessed: 10/24/24 Fall risk assessment: No Falls in past year Last assessed Fall Risk: 10/24/24 Dental Screening Dental Screen Date: 10/24/24 Did you have a dental visit in the last 12 months?: Yes Did you have a dental problem in the last 6 months where you did not have access to dental care?: No Was dental information given to patient?: Patient has dentist HPI Bumps in the head HPI Details 69-year-old lady here today wanting to see if she can be referred to a recreational director sooner than what was given to her when referred by the walk-in provider, for evaluation of lesions on her scalp. Patient states that her hairdresser noticed them while she was having her hair done, and is afraid that it might be cancerous. No family history of skin cancer, no pain or drainage coming from said lesion noted [facility] Medical History (Updated 10/26/23 @ 11:42 by Kayla Parekh MD) Dry skin dermatitis Lateral pain of right hip Anxiety Osteopenia of left femoral neck Menopause Dyslipidemia Essential hypertension Surgical History History of appendectomy Family History Father HTN (hypertension) Oral cancer Raynauds phenomenon Mother HTN (hypertension) Alcoholism Breast cancer Maternal Grandmother Alcoholism Sister No problems noted. Social History Alcohol intake: current Patient Tobacco Use Status: Former Tobacco user e-Cigarette/Vaping Use: Never Used Second Hand Smoke Exposure: No Current occupational status: retired Hearing needs: No Vision needs: Yes Questionnaire PHQ-9 Over the last 2 weeks, how often have you been bothered by any of the following problems? 1. Little interest or pleasure in doing things: not at all 2. Feeling down, depressed, or hopeless: not at all 3. Trouble falling or staying asleep, or sleeping too much: several days 4. Feeling tired or having little energy: several days 5. Poor appetite or overeating: several days 6. Feeling bad about yourself - or that you are a failure or have let yourself or your family down: not at all 7. Trouble concentrating on things, such as reading the newspaper or watching television: not at all 8. Moving or speaking so slowly that other people could have noticed. Or the opposite - being so fidgety or restless that you have been moving around a lot more than usual: not at all 9. Thoughts that you would be better off or of hurting yourself in some way: not at all Total score: 3 Depression Screening Interpretation: Negative Depression Screening Done: Yes 85387 - PHQ-9 Billing: Yes Source: Developed by Drs. Markel Hernandez, Cydney Padgett, Javon Tinoco and colleagues, with an educational stefan from [employer]). Thrive Questionnaire Date Thrive assessed: 10/24/24 I am a: Patient What is your living situation today?: I have a steady place to live Within the past 12 months, did the food you bought not last and you didn't have the money to get more?: Never true Within the past 12 months, did you worry whether your food would run out before you got money to buy more?: Never true Do you have trouble paying for medicines?: No Do you have trouble getting transportation to medical appointments?: No Do you have trouble paying your heating and electricity bill?: No Do you have trouble taking care of your child, family member or friend?: No Do you have trouble with day-to-day activities such as bathing, preparing meals, shopping, managing finances, etc.?: No Are you currently unemployed and looking for a job?: No Are you interested in more education?: No Please select the resources that you would like help with: None Currently or been in a relationship where the following occur: No concerns reported THRIVE Score: 0 AUDIT C Alcohol Use Questionnaire (AUDIT-C) 1. How often do you have a drink containing alcohol?: 2-4 times a month 2. How many drinks containing alcohol do you have on a typical day when you are drinking?: 1 or 2 3. How often do you have six or more drinks on one occasion?: Never Total Score: 2 RAMONA-7 AMB Questionnaire RAMONA-7 Date RAMONA - 7 assessed: 10/24/24 Feeling nervous, anxious, or on edge: 0 = Not at all Not being able to stop or control worryin = Not at all Worrying too much about different things: 0 = Not at all Trouble relaxin = Not at all Being so restless that it is hard to sit still: 0 = Not at all Becoming easily annoyed or irritable: 0 = Not at all Feeling afraid as if something awful might happen: 0 = Not at all Total RAMONA-7 score (0-4 normal; 5-9 mild; 10-14 moderate; 15-21 severe): 0 Source: Developed by Drs. Markel Hernandez, Cydney Padgett, Javon Tinoco and colleagues, with an educational stefan from [employer] ([employer]). RAMONA-7 Assessment Billing RAMONA-7 Assessment Tool: RAMONA-7 Assessment 50002 Review of Systems Const All systems reviewed & are unremarkable except as noted in HPI and below Physical exam (Primary Care) Vital Signs: Last Vital Signs Pulse 87 10/24/24 07:59 BP 115/70 10/24/24 07:59 Pulse Ox 98 10/24/24 07:59 Oxygen Delivery Method Room Air 10/24/24 07:59 BMI result Body Mass Index 21.8 Tobacco/Smoking Status: Tobacco use Status Tobacco use date assessed 10/24/24 10/24/24 08:03 Patient Tobacco Use Status Former Tobacco user 10/24/24 08:03 e-Cigarette/Vaping Use Never Used 10/24/24 08:03 PHQ-9: PHQ-9 Score PHQ-9: Total score 3 10/24/24 08:03 Depression Screening Interpretation: Negative Thrive Assessment: Date of Thrive Assessment Date Thrive assessed 10/24/24 10/24/24 08:03 Currently or been in a relationship where the following occur: No concerns reported Const General: healthy appearing, comfortable and no acute distress Nutritional Appearance: average body habitus Orientation/consciousness: patient oriented x3 Limitations: no limitations HENMT Other: Whitish slightly raised dry patches on frontal area of scalp, surrounding erythema, no active drainage seen. Nontender to palpation Neck Neck: Yes full ROM, Yes no lymphadenopathy and Yes supple Resp Auscultation: clear to auscultation bilaterally Cardio Rate: regular rate Rhythm: regular rhythm Heart sounds: S1 normal heart sound present and S2 normal heart sound present Skin General skin exam: no rashes or lesions noted Neuro General: patient oriented x3 Coding Level of Care Code Est Pt Level 3 (13651) Diagnoses Skin lesion of scalp L98.9 Additional Codes PHQ-9 - 96749 - PHQ-9 Billing: Yes ([id number]) RAMONA-7 Assessment Billing - RAMONA-7 Assessment Tool: RAMONA-7 Assessment 92436 ([id number]) Assessment & Plan Assessment & Plan (1) Skin lesion of scalp: Code(s): L98.9 - Disorder of the skin and subcutaneous tissue, unspecified Plan: Likely seborrhea, referral to Dermatology was already ordered by walk-in provider last month, patient would like to see if she can get seen sooner. Will try to get her in to [facility] or [facility] dermatology
== END 2024-10-24 09:03 | disposition home or self-care (01) ==
PROVIDERS: PCP Internal Medicine; Visit Provider Internal Medicine
DX: L98.9 Disorder of the skin and subcutaneous tissue, unspecified (principal)

== ENCOUNTER → 2024-10-24 07:55 | Outpatient (BNVA) | payer MEDICARE, SELFPAY | PROVIDERS: PCP Internal Medicine; Visit Provider Internal Medicine | DX: L98.9 Disorder of the skin and subcutaneous tissue, unspecified (principal) | CPT/HCPCS: 96127; 99212 ==

== ENCOUNTER 2025-01-24 09:05 | Outpatient (REF) | payer MEDICARE, SELFPAY | END 2025-01-24 09:06 | disposition home or self-care (01) | LOC: HO.MAMMO 09:05 | PROVIDERS: PCP Internal Medicine; Visit Provider Internal Medicine | DX: Z12.31 Encounter for screening mammogram for malignant neoplasm of breast (principal) | CPT/HCPCS: 77063; 77067 ==

== ENCOUNTER → 2025-01-24 09:15 | Outpatient (BNV) | payer MEDICARE, SELFPAY | PROVIDERS: PCP Internal Medicine; Visit Provider Internal Medicine | DX: Z12.31 Encounter for screening mammogram for malignant neoplasm of breast (principal) | CPT/HCPCS: 77063; 77067 ==

== ENCOUNTER 2025-06-02 09:26 | Outpatient (AMB) | payer MEDICARE, SELFPAY ==
--- OUTSIDE RECORDS SUMMARY | 2025-06-02 09:52 | XMS_ITS | Patient Health Record ---
Author Organization [facility] Address [address] [place] [address] Care Team Providers Care Drill Operator Pneumatic Name Role Phone Izabella ESCAMILLA, Kayla Primary Care Provider Alicia Jenkins Jr, Chris Unavailable Allergies Allergen (clinical drug ingredient) Drug/Non Drug Allergy documented on EMR Reaction Allergy Type Onset Date Status rofecoxib vioxx (uncoded) swelling Allergy Acti ve Reason For Referral No Information Medications Medication SIG (Take, Route, Fr equency, Duration) Notes Start Date End Date Status Lisinopril 5 MG 1 tablet Orally Once a day Active MoviPrep 100 GM as directed before c olonoscopy Orally for 1 dose 02/22/2017 Active Problems Problem Type SNOMED Code ICD Code Onset Dates Problem Status W/U Status Risk Notes Problem [id number] Colon cancer screening (Z12.11) Active confirmed Problem [id number] Encounter for other preprocedural examination (Z01.818) Active confirmed Plan Of Treatment Future Test Test Name Order Date COLONOSCOPY 02/22/2017 Insurance Providers Payer Name Payer Address Payer Phone Subscriber Number Group Number Insured Name Patient Relationship to Insured Coverage Start Date Coverage End Date [employer] [address] [place], [place] [id number] [phone] [id number] RAISA DIAZ Self - patient is the insured Medical (General) History Medical History History ICD Code colonoscopy 08-10-2007 hypertension Denies [place],DM,CVA,Lung disease,renal dise ase Surgical History Surgery Date(Month/Year) appendectomy oral surgery
[2025-06-02 09:57] VITALS: BP 130/70; PULSE 74; RESP 16; TEMP 36.7; O2SAT 97; BMI 19.9
--- NOTE | 2025-06-02 09:57 | AM.OFFVISMDC ---
Intake Vital Signs 06/02/25 09:57 Height 5 ft 4.5 in Weight 118 lb BMI 19.9 BP 130/70 Blood Pressure Location Lt brachial Position Sitting Respiration 16 Pulse 74 Temp 98.0 F Temp Source Oral Pulse Oximetry (%) 97 Oxygen Delivery Method Room Air Intake Visit Reasons: SWV G0439 Intake Note: Pt is here today for her SWV: last mammogram 01/24/25, bone density scan 02/07/18, colonoscopy 02/06/18 Allergies No Known Allergies Allergy (Verified 06/02/25 10:19) Medication List - Last Reconciled 06/02/25 by Kayla Parekh MD lisinopril-hydrochlorothiazide 10-12.5 mg 1 tab PO DAILY lorazepam 0.5 mg PO DAILY PRN HPI SWV G0439 HPI Details SWV ? 69 year old lady with hypertension,anxiety disorder, and osteopenia in left femoral neck and left femur, here today for her subsequent annual wellness visit..? She is up-to-date with her screening mammogram, last done 01/24/2025 with benign findings, and had her last Pap smear 12/13/2016 with normal findings. She had her last bone density scan done 02/07/2023 with normal bone density lumbar spine and osteopenia in her left femoral neck and left femur. No history of any fractures. She had her last colonoscopy done by Dr. Jenkins 02/16/2018 with normal findings, to be repeated in 10 years or 2027. She is up-to-date with all her vaccinations, including her COVID booster, flu shot, shingles vaccine, RSV, pneumonia vaccine and Tdap.. Last fasting lipid done 10/24/2023 showed normal results, and a fasting blood sugar was done 05/01/2023 which also came back within normal limits.. ? Medical / Social History Reviewed? Past Medical History ?Yes . ? [place] of Care / Care Team list updated ?Yes . ? Surgical/Hospitalization History ?Yes . ? Current Medications (including OTC and supplements) ?Yes . ? Family History ?Yes . ? Tobacco Control form ?Yes . ? AUDIT-C (Alcohol use) form ?Yes . ? Illicit drug use in Social History ?Yes . ? Current diagnosis of depression? ?No ? Appropriate PHQ2/PHQ9 completed ?Yes . ? Data entered by ?Tree [employer]ler and reviewed by provider ? Fall Risk ? Fall History? Have you had any falls with injury in the past year? ?No . ? Have you had two or more falls in the past year? ?No . ? Fall Risk Assessment: ?No falls in the past year . ? HRA filled out by the patient, reviewed by Provider and scanned. ?SWV ? Balance? Romberg ?negative ? Tandem walk ?Yes . ? Walk and Turn ?Yes . ? Rise from sit to stand ?Yes . ?Vision? Corrective lens ?Yes ? Vision screen ? Up-to-date, sees Dr. Simmons ?Hearing? Whisper test ?pass . ?Written Plan?Completed. See Patient Documents.? HPI Comments History of Present Illness Details 69-year-old lady with hypertension, osteopenia in left femoral neck and left femur and history of anxiety disorder, here today for her follow-up [facility] Medical History Dry skin dermatitis Lateral pain of right hip Anxiety Osteopenia of left femoral neck Menopause Dyslipidemia Essential hypertension Surgical History History of appendectomy Family History Father HTN (hypertension) Oral cancer Raynauds phenomenon Mother HTN (hypertension) Alcoholism Breast cancer Maternal Grandmother Alcoholism Sister No problems noted. Social History Alcohol intake: current Patient Tobacco Use Status: Former Tobacco user e-Cigarette/Vaping Use: Never Used Second Hand Smoke Exposure: No Current occupational status: retired Hearing needs: No Vision needs: Yes Questionnaire Medicare Wellness Checkup [age] What gender do you identify with?: female During the past 4 weeks, how much have you been bothered by emotional problems such as feeling anxious, depressed, irritable, sad or downhearted, and blue?: not at all During the past 4 weeks, has your physical & emotional health limited your social activities with family, friends, neighbors, or groups?: not at all During the past 4 weeks, how much bodily pain have you generally had?: no pain During the past 4 weeks, what was the hardest physical activity you could do for at least 2 minutes?: heavy Can you get to places out of walking distance without help? (For eg., can you travel alone on buses, taxis or drive your car?): Yes Can you go shopping for groceries or clothes without someone's help?: Yes Can you prepare your own meals?: Yes Can you do your housework without help?: Yes Because of any health problems, do you need the help of another person with your personal care needs such as eating, bathing, dressing or getting around the house?: No Can you handle your own money without help?: Yes During the past 4 weeks, how would you rate your health in general?: excellent During the past 4 weeks how have things been going for you?: very well; could hardly better Are you having difficulties driving your car?: no Do you always fasten your seat belt when you are in a car?: yes, usually During past 4 weeks, have you been bothered by the following: never: Falling or dizzy when standing up, Sexual problems?, Trouble eating well?, Teeth or denture problems?, Problems using the telephone? and Tiredness or fatigue? Have you fallen 2 or more times in the past year?: No Are you afraid of falling?: No Are you a smoker?: no During the past 4 weeks, how many drinks of wine, beer, or other alcoholic beverages did you have?: 2-5 drinks per week Do you exercise for about 20 minutes 3 or more times a week?: yes, some of the time Have you been given information to help with the following?: no: Hazards in your house that might hurt you? and no: Keeping track of your medications? How often do you have trouble taking medicines the way you have been told to take them?: I always take medicine as prescribed How confident are you that you can control & manage most of your health problems?: very confident What is your race?: White Mini Mental State Exam (MMSE) Orientation What is the (year) (season) (date) (day) (month)?: year (2024), season (summer), date (06/02/25), day (monday) and month (May) Where are we (state) (county) (town or city) (hospital) (floor)?: state [place] [facility] ([place]), town or city ([place]) and hospital/clinic ([facility]) Score Score: 9 Activity of Daily Living Bathing - sponge bath, tub bath or shower: receives no assistance (gets in/out by self, if usual bathing means Dressing - getting clothes from closets & drawers, including inner/outer garments & fasteners.: gets clothes & gets completely dressed without help Toileting - going to the 'toilet room' for urine/bowel elimination & cleaning self/arranging clothes: goes to toilet room, cleans self, arranges clothes without help Transfer: moves in & out of bed and chair without help (may use support object) Continence: controls urination/bowel movements completely by self Feeding: feeds self without help Total Score: 0 Information obtained from: patient Using telephone: independent Traveling: independent Shopping: independent Preparing meals: independent Housework: independent Taking medicine: independent Managing money: independent PHQ-9 Over the last 2 weeks, how often have you been bothered by any of the following problems? 1. Little interest or pleasure in doing things: not at all 2. Feeling down, depressed, or hopeless: not at all 3. Trouble falling or staying asleep, or sleeping too much: not at all 4. Feeling tired or having little energy: not at all 5. Poor appetite or overeating: not at all 6. Feeling bad about yourself - or that you are a failure or have let yourself or your family down: not at all 7. Trouble concentrating on things, such as reading the newspaper or watching television: not at all 8. Moving or speaking so slowly that other people could have noticed. Or the opposite - being so fidgety or restless that you have been moving around a lot more than usual: not at all 9. Thoughts that you would be better off or of hurting yourself in some way: not at all Total score: 0 Depression Screening Interpretation: Negative Depression Screening Done: Yes 66163 - PHQ-9 Billing: Yes Source: Developed by Drs. Markel Hernandez, Cydney Padgett, Javon Tinoco and colleagues, with an educational stefan from [employer]. Review of Systems Const All systems reviewed & are unremarkable except as noted in HPI and below Reports weight loss (Through healthy eating habits and regular exercise) Physical Exam Vital Signs: Last Vital Signs Temp 98.0 F 06/02/25 09:57 Pulse 74 06/02/25 09:57 Resp 16 06/02/25 09:57 BP 130/70 06/02/25 09:57 Pulse Ox 97 06/02/25 09:57 Oxygen Delivery Method Room Air 06/02/25 09:57 BMI result Body Mass Index 19.9 Const General: no acute distress and alert Orientation/consciousness: patient oriented x3 Limitations: no limitations HEENT Ears: external ears normal General nose exam: Normal external nose present Mouth: Normal oral and palatal mucosa present, oropharynx normal and moist mucous membranes Eyes General: appearance normal, both eyes and all related structures Neck Neck: Yes full ROM, Yes no lymphadenopathy and Yes supple Resp Effort & Inspection: normal respiratory effort and able to speak in complete sentences Auscultation: clear to auscultation bilaterally Cardio Rate: regular rate Rhythm: regular rhythm Heart sounds: S1 normal heart sound present and S2 normal heart sound present GI Palpation (GI): Soft to palpation, nontender and no masses Auscultation: normal bowel sounds Back/Spine/Pelvis Back: No back tenderness Skin General skin exam: no rashes or lesions noted Neuro General: patient oriented x3, gait normal, tone normal, moves all extremities, Normal light touch and pain sensation and no focal motor deficits Cranial nerves: Yes CN's II-XII intact bilaterally Cognition (Neuro): normal cognition Extrem General: Yes full ROM, Yes no joint enlargement, Yes no clubbing, cyanosis or edema and Yes no calf tenderness Psych Appearance: grossly normal and well kempt Mental Status: mental status grossly normal Speech and movement: Normal speech and movement present Affect: normal affect Assessment & Plan Assessment & Plan (1) Encounter for subsequent annual wellness visit (AWV) in Medicare patient: Code(s): Z00.00 - Encounter for general adult medical examination without abnormal findings Plan: Medical wellness checklist reviewed, discussed with patient and updated. Copy given. (2) Essential hypertension: Code(s): I10 - Essential (primary) hypertension Plan: Blood pressure at goal of less than 130/80. Continue with lisinopril-HCTZ 10-12.5 mg 1 tablet daily. Reinforced importance of following a low sodium diet, getting regular exercise, and lowering stress levels. (3) Dyslipidemia: Code(s): E78.5 - Hyperlipidemia, unspecified Plan: Fasting lipid panel ordered today. (4) Anxiety: Code(s): F41.9 - Anxiety disorder, unspecified Plan: Takes lorazepam as needed for acute anxiety attacks. (5) Osteopenia of left femoral neck: Code(s): M85.852 - Other specified disorders of bone density and structure, left thigh Plan: Advised to start taking ejcv-fqf-esghzlo vitamin-D 3 at least 2000 units daily and take adequate calcium from dietary sources. Important to do at least 150 minutes of weight-bearing exercise per week. Repeat bone density scan together with screening mammogram next year Orders: Orders Alanine Aminotransferase 06/02/25 E78.5 - Hyperlipidemia, unspecified, I10 - Essential (primary) hypertension, M85.852 - Other specified disorders of bone density and structure, left thigh, Z78.0 - Asymptomatic menopausal state Aspartate Amino Transferase 06/02/25 E78.5 - Hyperlipidemia, unspecified, I10 - Essential (primary) hypertension, M85.852 - Other specified disorders of bone density and structure, left thigh, Z78.0 - Asymptomatic menopausal state Lipid Panel 06/02/25 E78.5 - Hyperlipidemia, unspecified, I10 - Essential (primary) hypertension, M85.852 - Other specified disorders of bone density and structure, left thigh, Z78.0 - Asymptomatic menopausal state Vitamin D 25-OH Total 06/02/25 E78.5 - Hyperlipidemia, unspecified, I10 - Essential (primary) hypertension, M85.852 - Other specified disorders of bone density and structure, left thigh, Z78.0 - Asymptomatic menopausal state Basic Metabolic Panel Fasting 06/02/25 E78.5 - Hyperlipidemia, unspecified, I10 - Essential (primary) hypertension, M85.852 - Other specified disorders of bone density and structure, left thigh, Z78.0 - Asymptomatic menopausal state XR DEXA axial skeleton 01/25/26 M85.852 - Other specified disorders of bone density and structure, left thigh, Z12.31 - Encounter for screening mammogram for malignant neoplasm of breast, Z78.0 - Asymptomatic menopausal state MM tomosynthesis screening BI 01/25/26 M85.852 - Other specified disorders of bone density and structure, left thigh, Z12.31 - Encounter for screening mammogram for malignant neoplasm of breast, Z78.0 - Asymptomatic menopausal state Quality Reporting (2019) Depression/Bipolar (159/160/161/177) PHQ-9: Total score: 0 Coding Level of Care Code Medicare Subsequent (G0439) Est Pt Level 4 (61887) Diagnoses Encounter for subsequent annual wellness visit (AWV) in Medicare patient Z00.00 Essential hypertension I10 Dyslipidemia E78.5 Anxiety F41.9 Osteopenia of left femoral neck M85.852 CPT Codes Advance Care Planning - Advance Care Planning discussion: On file, no changes ([id number]) Advance Care Planning - Time spent: 1-15 minutes, on File ([id number]) Additional Codes PHQ-9 - 17970 - PHQ-9 Billing: Yes ([id number]) Advance Care Planning Advance Care Planning discussion: On file, no changes Date of discussion: 06/02/25 Who was present: Patient Forms completed: Health Care Proxy and MOLST Time spent: 1-15 minutes, on File Actual minutes spent: 2
== END 2025-06-02 10:32 | disposition home or self-care (01) ==
LOC: HO.HMCC 09:27
PROVIDERS: PCP Internal Medicine; Visit Provider Internal Medicine
DX: Z00.00 Encounter for general adult medical examination without abnormal findings (principal); I10 Essential (primary) hypertension; E78.5 Hyperlipidemia, unspecified; F41.9 Anxiety disorder, unspecified; M85.852 Other specified disorders of bone density and structure, left thigh

== ENCOUNTER → 2025-06-02 09:26 | Outpatient (BNVA) | payer MEDICARE, SELFPAY | PROVIDERS: PCP Internal Medicine; Visit Provider Internal Medicine | DX: Z00.00 Encounter for general adult medical examination without abnormal findings (principal); I10 Essential (primary) hypertension; E78.5 Hyperlipidemia, unspecified; F41.9 Anxiety disorder, unspecified; M85.852 Other specified disorders of bone density and structure, left thigh; Z79.899 Other long term (current) drug therapy; Z13.30 Encounter for screening examination for mental health and behavioral disorders, unspecified | CPT/HCPCS: 96127; 99212 ==

== ENCOUNTER 2025-10-02 14:37 | Outpatient (AMB) | payer MEDICARE, SELFPAY ==
[2025-10-02 14:40] VITALS: BP 158/83; PULSE 74; RESP 14; O2SAT 98; BMI 19.4
--- NOTE | 2025-10-02 14:40 | MHC.OFFWIV ---
Intake Vital Signs 10/02/25 14:40 Height 5 ft 4.5 in Weight 115 lb BMI 19.4 BP 158/83 H Blood Pressure Location Lt brachial Position Sitting Respiration 14 Pulse 74 Pulse Source Pulse Oximeter Pulse Oximetry (%) 98 Oxygen Delivery Method Room Air Intake Visit Reasons: EP swallowed cantalope stuck deep in throat Patient Tobacco Use Status: Former Tobacco user Allergies No Known Allergies Allergy (Verified 10/02/25 14:43) Do you need a note to return to daycare/school/sports/work: No PFSH Medical History (Updated 10/02/25 @ 15:17 by Jackie Mayer NP) Esophageal obstruction due to food impaction Dry skin dermatitis Lateral pain of right hip Anxiety Osteopenia of left femoral neck Menopause Dyslipidemia Essential hypertension Surgical History History of appendectomy Family History Father HTN (hypertension) Oral cancer Raynauds phenomenon Mother HTN (hypertension) Alcoholism Breast cancer Maternal Grandmother Alcoholism Sister No problems noted. Social History Alcohol intake: current Patient Tobacco Use Status: Former Tobacco user e-Cigarette/Vaping Use: Never Used Second Hand Smoke Exposure: No Current occupational status: retired Hearing needs: No Vision needs: Yes Physical Exam Vital Signs: Last Vital Signs Pulse 74 10/02/25 14:40 Resp 14 10/02/25 14:40 BP 158/83 H 10/02/25 14:40 Pulse Ox 98 10/02/25 14:40 Oxygen Delivery Method Room Air 10/02/25 14:40 BMI result Body Mass Index 19.4 Const General: no acute distress Nutritional Appearance: well nourished Orientation/consciousness: patient oriented x3 HEENT Other: Oropharynx: Clear, no visible obstruction or erythema. Head: Yes normocephalic Ears: external ears normal General nose exam: Normal external nose present Face and sinus: Yes sinuses nontender Resp Effort & Inspection: normal respiratory effort Cardio Rate: regular rate Neuro General: patient oriented x3 Assessment & Plan Assessment & Plan (1) Esophageal obstruction due to food impaction: Code(s): K22.2 - Esophageal obstruction; T18.128A - Food in esophagus causing other injury, initial encounter Plan: Continue small sips of carbonated beverages; avoid solid foods until discomfort improves. Monitor for any worsening pain, inability to swallow saliva, vomiting, chest pain, or respiratory distress ? advised to go to the ER immediately if these occur. If symptoms persist or worsen within the next few hours, recommend urgent evaluation (consider esophagogastroduodenoscopy for removal if impaction persists). Vitals WNL and Exam Unremarkable. Coding Level of Care Code Est Pt Level 4 (42025) Diagnoses Esophageal obstruction due to food impaction K22.2; T18.128A Time Spent (min) 20
--- OUTSIDE RECORDS SUMMARY | 2025-10-02 18:00 | XMS_ITS | Patient Health Record ---
Author Organization [facility] Address [address] [place] [address] Care Team Providers Care Dredge Pipeman Name Role Phone Izabella ESCAMILLA, Kayla Primary Care Provider Alicia Jenkins Jr, Chris Unavailable [phone] Allergies Allergen (clinical drug ingredient) Drug/Non Drug Allergy documented on EMR Reaction Allergy Type Onset Date Status rofecoxib vioxx (uncoded) swelling Allergy Acti ve Reason For Referral No Information Medications Medication SIG (Take, Route, Fr equency, Duration) Notes Start Date End Date Status Lisinopril 5 MG 1 tablet Orally Once a day Active MoviPrep 100 GM as directed before c olonoscopy Orally; Duration: 1 dose 02/22/2017 Active Problems Problem Type SNOMED Code ICD Code Onset Dates Problem Status W/U Status Risk Notes Problem Colon cancer screening (477609295) Colon cancer screening (Z12.11) Active confirmed Problem Pre-procedure evaluation check (024603050) Encounter for other preprocedural examination (Z01.818) Active confirmed Plan Of Treatment Future Test Test Name Order Date COLONOSCOPY 02/22/2017 Insurance Providers Payer Name Payer Address Payer Phone Subscriber Number Group Number Insured Name Patient Relationship to Insured Coverage Start Date Coverage End Date [employer] [address] [place], [place] [address] [id number] RAISA DIAZ Self - patient is the insured Medical (General) History Medical History History ICD Code colonoscopy 08-10-2007 hypertension Denies [place],DM,CVA,Lung disease,renal dise ase Surgical History Surgery Date(Month/Year) appendectomy oral surgery
== END 2025-10-02 15:18 | disposition home or self-care (01) ==
PROVIDERS: PCP Internal Medicine; Visit Provider Nurse Practitioner Family
DX: K22.2 Esophageal obstruction (principal); T18.128A Food in esophagus causing other injury, initial encounter

== ENCOUNTER → 2025-10-02 14:37 | Outpatient (BNVA) | payer MEDICARE, SELFPAY | PROVIDERS: PCP Internal Medicine; Visit Provider Nurse Practitioner Family | DX: K22.2 Esophageal obstruction (principal); T18.128A Food in esophagus causing other injury, initial encounter | CPT/HCPCS: 99212 ==

== ENCOUNTER 2025-10-09 11:49 | Emergency (ER) | payer MEDICARE, SELFPAY ==
[2025-10-09 12:04] VITALS: BP 173/84; PULSE 72; RESP 18; TEMP 36.7; O2SAT 100; BMI 18.8
--- NOTE | 2025-10-09 12:08 | ED.GENADULT ---
HPI - General Adult General Chief complaint: General Medical Stated complaint: General Medical Time Seen by Provider: 10/09/25 15:07 Source: patient, family and RN notes reviewed Mode of arrival: ambulatory Limitations: no limitations History of Present Illness ED Provider: Beverly David PA-C [facility] narrative: This is a [id number]-female who presents to the ER with feeling as though food is getting stuck in her throat x 1.5 weeks. She reports that she felt as thoough a piece of melon got stuck in her throat 1.5 weeks ago and eventually after drinking fluids the melon eventually went down. Since then, she has felt that every time she eats the food gets stuck and takes some time to feel as though she is able to fully swallow it. She denies hx of similar symptoms. She is able to drink fluids without difficulty. She denies any fevers, chills, chest pain, shortness of breath, abdominal pain, nausea, vomiting or diarrhea. She does not have a GI specialist. No other complaints or concerns at this time. MD complaint: Dysphagia Onset (ago): week(s) Relieving factors: none Exacerbating factors: none Associated symptoms: denies other symptoms Treatments prior to arrival: none Related Data Previous Rx's ?Medication ?Instructions ?Recorded lorazepam 0.5 mg tablet 0.5 mg PO DAILY PRN anxiety #20 09/21/22 tabs lisinopril 10 1 tab PO DAILY #90 tabs 06/01/25 mg-hydrochlorothiazide 12.5 mg tablet Allergies Allergy/AdvReac Type Severity Reaction Status Date / Time No Known Allergies Allergy Verified 10/09/25 12:07 Review of Systems Review of Systems: Constitutional : No Fever, No Chills ENT/Mouth : No sore throat, No Rhinorrhea Eyes: No Eye Pain, No Swelling, No Redness Cardiovascular : No Chest Pain, No SOB Respiratory : No Cough, No Sputum Gastrointestinal : No Nausea, No Vomiting, No Diarrhea, No abdominal Pain Genitourinary : No Dysuria, No Hematuria Musculoskeletal : No joint pain, No Myalgias, No Joint Swelling Skin : No Skin Lesions Neuro : No Weakness, No Numbness, No Headache All other systems reviewed and are negative Yes all other systems are reviewed and are negative Constitutional: Constitutional: Reports as per [facility] Past Medical History Medical History (Updated 10/10/25 @ 00:00 by Background Daemon) Esophageal obstruction due to food impaction Dry skin dermatitis Lateral pain of right hip Anxiety Osteopenia of left femoral neck Menopause Dyslipidemia Essential hypertension Surgical History History of appendectomy Family History Family History Father HTN (hypertension) Oral cancer Raynauds phenomenon Mother HTN (hypertension) Alcoholism Breast cancer Maternal Grandmother Alcoholism Sister No problems noted. Social History Social History Alcohol intake: current Patient Tobacco Use Status: Former Tobacco user e-Cigarette/Vaping Use: Never Used Second Hand Smoke Exposure: No Current occupational status: retired Hearing needs: No Vision needs: Yes Physical Exam ED Vital Signs: Vital Signs - 24 hr 10/09/25 12:04 Temperature 98.1 F Pulse Rate 72 Respiratory Rate 18 Blood Pressure 173/84 H Pulse Oximetry 100 Oxygen Delivery Method Room Air BMI result Body Mass Index 18.8 Const General: cooperative, comfortable and no acute distress Orientation/consciousness: patient oriented x3 Limitations: no limitations HENMT Other: Airway widely patent, no trismus, drooling or dysphonia Head: Yes normal to inspection, Yes normocephalic and Yes atraumatic Ears: hearing grossly normal bilaterally General nose exam: Normal external nose present Face and sinus: Yes normal facial exam Mouth: Normal oral and palatal mucosa present, oropharynx normal and moist mucous membranes Throat: Yes posterior oropharynx normal Eyes General: appearance normal, both eyes and all related structures Eyelids: Yes eyelids normal Conjunctivae: conjunctivae normal Sclerae: sclerae normal Pupils: Equal, round and reactive pupils present EOM: EOMs intact bilaterally Neck Neck: Yes normal visual inspection, Yes full ROM and Yes no lymphadenopathy Lymphatic: no lymphadenopathy noted Chest Chest palpation & inspection: normal inspection of the chest Resp Effort & Inspection: normal respiratory effort and able to speak in complete sentences Auscultation: clear to auscultation bilaterally, no crackles, no rales, no rhonchi and no wheezes Cardio Rate: regular rate Rhythm: regular rhythm Heart sounds: S1 normal heart sound present and S2 normal heart sound present GI Inspection: Yes normal to inspection Skin General skin exam: no rashes or lesions noted Trauma: no lacerations or abrasions Wounds: no wounds Neuro General: patient oriented x3 and moves all extremities Cranial nerves: Yes Equal, round and reactive pupils present Extrem General: Yes normal to inspection Right upper extremity: normal to inspection Left upper extremity: normal to inspection Right lower extremity: normal to inspection Left lower extremity: normal to inspection Course Course Course Narrative: RME: Medical Decision Making Medical Decision Making [facility] Narrative: 70 y/o F who presents to the ER due to dysphagia. On arrival, pt is well appearing, speaking in full sentences under no acute distress. She is able to drink fluids freely without difficulty, however when she eats solid foods she feels as though the food is getting stuck. Labs were obtained prior to my assessment, she has no leukocytosis, chemistry WNL. EKG with no evidence of STEMI. I reached out to Dr. Coon, from GI for input. Dr. Coon inquires on if we can do a barium swallow. I reached out to fluoroscopy suite and unfortunately they are gone for the day. Dr. Coon recommends outpatient workup, or if she is unable to keep up with fluids/food possible admission for barium swallow. Depending on this she may need ENT eval. I went to update patient on recommendations from the specialist and the room is empty. It appears that patient had left prior to completing treatment. I called patient's cell phone listed in her chart and call went straight to voicemail. Differential Diagnosis Differential Diagnoses: The differential diagnosis associated with the presentation includes dysphagia, globus sensation, mass, obstruction Lab Data [facility] Lab Attestation statement: I reviewed the patient's lab results. see [facility] 10/09/25 12:42 10/09/25 12:42 Labs: Lab Results 10/09/25 Range/Units 12:42 WBC 6.3 (4.8-10.8) X10*3/uL RBC 4.43 (4.20-5.50) X10*6/uL Hgb 13.8 (12.0-16.0) g/dl Hct 40.7 (37.0-47.0) % MCV 91.9 (80.0-98.0) fL MCH 31.2 (27.0-33.0) pg MCHC 33.9 (31.0-35.0) g/dl RDW 13.0 (11.0-16.0) % Plt Count 242 (160-400) X10*3/uL MPV 9.2 L (9.4-12.3) fL Immature Gran % (Auto) 0.3 (0.0-0.4) % Neut % (Auto) 57.5 (45-73) % Lymph % (Auto) 35.3 (20-40) % [place] % (Auto) 5.6 (2-11) % Eos % (Auto) 0.5 (0-4) % Baso % (Auto) 0.8 (0-2) % Lymph # (Auto) 2.2 (1.2-4.9) X10*3/uL [place] # (Auto) 0.4 (0.1-1.2) X10*3/uL Eos # (Auto) 0.0 (0.0-0.4) X10*3/uL Baso # (Auto) 0.1 (0.0-0.2) X10*3/uL Abs Immat Gran (auto) 0.02 (0.00-0.03) X10*3/uL Absolute Neuts (auto) 3.6 (2.0-8.3) x10*3/uL Absolute Nucleated RBC 0.000 (0.0-0.012) X10*3/uL Nucleated RBC % (auto) 0.0 (0.0-0.2) /100WBC PT 11.7 (11.2-13.5) SEC INR 1.0 (0.9-1.1) APTT 26.7 (26.7-34.1) SEC Sodium 138 (135-145) mmol/L Potassium 3.9 (3.3-5.1) mmol/L Chloride 100 (96-108) mmol/L Carbon Dioxide 30 H (22-29) mmol/L Anion Gap 12 (12-20) BUN 15 (9-16) mg/dL Creatinine 0.69 (0.5-1.4) mg/dL Estim Creat Clear Calc 60.5 Estimated GFR > 60 Random Glucose 97 (60-115) mg/dL Calcium 9.6 (8.4-10.2) mg/dL Total Bilirubin 0.8 (0.0-1.0) mg/dL AST 22 (5-31) U/L ALT 16 (0-31) U/L Alkaline Phosphatase 44 (39-117) U/L Troponin I High Sens < 2.7 (<3.5-17.0) ng/L Total Protein 7.2 (6.5-8.0) g/dL Albumin 4.7 (3.5-5.0) g/dL Lipase 34 (8-78) U/L Independent Interpretation I performed an independent interpretation of an: EKG Interpretation: EKG NSR at a rate of 69bpm, pr interval 146, QT/QTC 374/400. no stemi Discharge Plan Discharge Clinical Impression: Dysphagia Patient Disposition: Left W/O Completing Treatment Prescriptions: No Action lisinopril-hydrochlorothiazide 10-12.5 mg tablet 1 tab PO DAILY Qty: 90 1RF lorazepam 0.5 mg tablet 0.5 mg PO DAILY PRN (Reason: anxiety) Qty: 20 0RF Discharge Date/Time: 10/09/25 16:20
--- NOTE | 2025-10-09 12:10 | ECG_ITS ---
Test Reason : ap Blood Pressure : */* mmHG Vent. Rate : 69 BPM Atrial Rate : 69 BPM P-R Int : 146 ms QRS Dur : 66 ms QT Int : 374 ms P-R-T Axes : 72 10 49 degrees QTcB Int : 400 ms Normal sinus rhythm Normal ECG No previous ECGs available Referred By: Irving Escamilla Electronically Signed By: GAVIN GRAHAM
[2025-10-09 12:48] LABS: MANUAL DIFF FLAG NO
[2025-10-09 12:51] LABS: Hematocrit 40.7 % (37.0-47.0); Hemoglobin 13.8 g/dl (12.0-16.0); Imm Gran Abs Auto 0.02 X10*3/uL (0.00-0.03); Imm Gran Pct Auto 0.3 % (0.0-0.4); Lymphocytes Absolute Auto 2.2 X10*3/uL (1.2-4.9); Mean Corpuscular HGB Conc 33.9 g/dl (31.0-35.0); Mean Corpuscular Hemoglobin 31.2 pg (27.0-33.0); Mean Corpuscular Volume 91.9 fL (80.0-98.0); NRBC Abs Auto 0.000 X10*3/uL (0.0-0.012); NRBC Pct Auto 0.0 /100WBC (0.0-0.2); Platelet Count 242 X10*3/uL (160-400); Red Blood Count 4.43 X10*6/uL (4.20-5.50); White Blood Count 6.3 X10*3/uL (4.8-10.8)
[2025-10-09 12:59] LABS: INTERNATIONAL NORM RATIO 1.0 (0.9-1.1); Prothrombin Time 11.7 SEC (11.2-13.5)
[2025-10-09 13:02] LABS: Partial Thromboplastin Time 26.7 SEC (26.7-34.1)
[2025-10-09 13:23] LABS: Alanine Aminotransferase 16 U/L (0-31); Albumin Level 4.7 g/dL (3.5-5.0); Alkaline Phosphatase 44 U/L (39-117); Anion Gap 12 (12-20); Aspartate Amino Transferase 22 U/L (5-31); Blood Urea Nitrogen 15 mg/dL (9-16); Calcium 9.6 mg/dL (8.4-10.2); Carbon Dioxide 30 mmol/L (22-29); Chloride 100 mmol/L (96-108); Creatinine Clr Calc Pharmacy 60.5; Estimated Glomerular Filt Rate > 60; Lipase 34 U/L (8-78); Potassium 3.9 mmol/L (3.3-5.1); Sodium 138 mmol/L (135-145); Total Protein 7.2 g/dL (6.5-8.0)
[2025-10-09 13:32] LABS: Troponin-I High Sensitivity < 2.7 ng/L (<3.5-17.0)
--- OUTSIDE RECORDS SUMMARY | 2025-10-09 18:59 | XMS_ITS | Patient Health Record ---
Author Organization [facility] Address [address] [place] [address] Care Team Providers Care Certified Phlebotomy Technician Name Role Phone Izabella ESCAMILLA, Kayla Primary Care Provider Alicia Jenkins Jr, Chris Unavailable Allergies Allergen (clinical drug ingredient) Drug/Non Drug Allergy documented on EMR Reaction Allergy Type Onset Date Status rofecoxib vioxx (uncoded) swelling Allergy Acti ve Reason For Referral No Information Medications Medication SIG (Take, Route, Frequency, Duration) Notes Start Date End Date Status Lisinopril 5 MG Tablet 1 tablet Orally O nce a day Active MoviPrep 100 GM Solution Reconstituted as directed before colonoscopy Orally; Duration: 1 dose 02/22/2017 Active Social History Social History Additional Details Category Social Info Options Details Miscellaneous: Marital status: Occupation: operations manag er Problems Problem Type SNOMED Code ICD Code Onset Dates Problem Status W/U Status Risk Notes Problem Colon cancer screening (322073924) Colon cancer screening (Z12.11) Active confirmed Problem Pre-procedure evaluation check (891531323) Encounter for other preprocedural examination (Z01.818) Active confirmed Plan Of Treatment Future Test Test Name Order Date COLONOSCOPY 02/22/2017 Insurance Providers Payer Name Payer Address Payer Phone Subscriber Number Group Number Insured Name Patient Relationship to Insured Coverage Start Date Coverage End Date [employer] [address] [place] [address] [id number] RAISA DIAZ Self - patient is the insured Medical (General) History Medical History History ICD Code colonoscopy 08-10-2007 hypertension Denies [place],DM,CVA,Lung disease,renal dise ase Surgical History Surgery Date(Month/Year) appendectomy oral surgery
== END 2025-10-09 16:20 | disposition left against medical advice (07) ==
PROVIDERS: Physician Assistant; Emergency Provider Emergency Medicine; PCP Internal Medicine
DX: R13.10 Dysphagia, unspecified (principal); I10 Essential (primary) hypertension; E78.5 Hyperlipidemia, unspecified
CPT/HCPCS: 36415; 80053; 83690; 84484; 85025; 85610; 85730; 93005; 99283

== ENCOUNTER → 2025-10-09 12:10 | Outpatient (BNV) | payer MEDICARE, SELFPAY | PROVIDERS: Emergency Provider Emergency Medicine; PCP Internal Medicine; Visit Provider Internal Medicine | DX: R10.9 Unspecified abdominal pain (principal) | CPT/HCPCS: 93010 ==

== ENCOUNTER 2025-10-28 08:03 | Outpatient (REF) | payer MEDICARE, SELFPAY ==
--- NOTE | ~2025-10-28 | FL_ITS ---
EXAMINATION: FL ESOPHAGRAM CLINICAL INFORMATION: Dysphagia COMPARISON: None. TECHNIQUE: Under fluoroscopy, thick and thin consistency barium and a barium pill were administered orally and transit through the esophagus was observed. Additional radiographic images were obtained. FLUOROSCOPY TIME: 2 minutes 4 seconds DOSE AREA PRODUCT: 65 uGy-m2 (microgray-meters squared) FINDINGS: Normal swallowing reflex. No evidence of penetration or aspiration events doing the study. There is a smooth impression along the posterior aspect of the esophagus in the region of the lower cervical spine, probably reflecting impression of the cricopharyngeal muscle. Esophagus demonstrates normal caliber and motility. No evidence of fixed stricture or stenosis is identified. No mass or mucosal lesion is seen. Patient swallowed a barium tablet. There is temporal holdup of the barium tablet at the level of the upper thoracic esophagus, which passes with subsequent swallows of water. No evidence of hiatal hernia. No reflux is seen in the supine position. FL/FL barium swallow with air IMPRESSION: * Smooth impression on the posterior aspect of the esophagus in the region of the lower cervical spine, probably related to the cricopharyngeal muscle. * No fixed stricture or stenosis is identified. * There is temporary holdup of the barium tablet at the level of the upper thoracic esophagus, which passes with subsequent swallows of water. * Further evaluation with endoscopy as clinically indicated. Electronically signed by: Adebayo Oswald MD 10/28/2025 10:14 AM ERINN
== END 2025-10-28 08:04 | disposition home or self-care (01) ==
LOC: HO.XRAY 08:03
PROVIDERS: PCP Internal Medicine; Visit Provider Internal Medicine
DX: R13.10 Dysphagia, unspecified (principal)
CPT/HCPCS: 74221

== ENCOUNTER → 2025-10-28 08:04 | Outpatient (BNV) | payer MEDICARE, SELFPAY | PROVIDERS: PCP Internal Medicine; Visit Provider Radiology Diagnostic Ultrasound | DX: R13.10 Dysphagia, unspecified (principal) | CPT/HCPCS: 74221 ==

== ENCOUNTER 2025-11-03 10:55 | Outpatient (REF) | payer MEDICARE, SELFPAY ==
--- NOTE | ~2025-11-03 | XR_ITS ---
EXAMINATION: XR CERVICAL SPINE CLINICAL INFORMATION: M54.2 - Cervicalgia COMPARISON: None available. TECHNIQUE: 5 views FINDINGS: Bone mineralization is decreased. Mild anterolisthesis of C7 on T1. Vertebral body heights are maintained. No evidence of acute fracture. Moderate C5-6, and mild C6-7 disc degeneration. Multilevel facet degeneration. Apparent multifocal neural foramen narrowing on the right, and in the upper left neural foramen. This could be related to positioning/technique. Lung apices are clear. No prevertebral soft tissue swelling. XR/XR cervical spine min 6V IMPRESSION: No acute findings. Cervical spondylosis. Apparent bilateral neural foramen narrowing, could be related to positioning/technique. Electronically signed by: Adebayo Oswald MD 11/05/2025 07:54 AM EST
== END 2025-11-03 10:56 | disposition home or self-care (01) ==
LOC: HO.HMGCX 10:55
PROVIDERS: PCP Internal Medicine; Visit Provider Internal Medicine
DX: M54.2 Cervicalgia (principal); R13.19 Other dysphagia
CPT/HCPCS: 72052; 96127; 99212

== ENCOUNTER 2025-11-03 10:55 | Outpatient (AMB) | payer MEDICARE, SELFPAY ==
[2025-11-03 11:30] VITALS: BP 104/60; PULSE 53; RESP 16; TEMP 36.7; O2SAT 100; BMI 18.6
--- NOTE | 2025-11-03 11:30 | A.OFFPC_ITS ---
Vital Signs 11/03/25 11:30 Height 5 ft 5 in Weight 112 lb BMI 18.6 BP 104/60 Blood Pressure Location Rt brachial Position Sitting Respiration 16 Pulse 53 Pulse Source Pulse Oximeter Temp 98.1 F Temp Source Oral Pulse Oximetry (%) 100 Oxygen Delivery Method Room Air Intake Visit Reasons: barium swallow results Director Data Processing Required: No Allergies No Known Allergies Allergy (Verified 11/07/25 02:08) Medication List - Last Reconciled 11/07/25 by Kayla Parekh MD lisinopril-hydrochlorothiazide 10-12.5 mg 1 tab PO DAILY lorazepam 0.5 mg PO DAILY PRN Tobacco use date assessed: 11/03/25 Fall risk assessment: No Falls in past year Last assessed Fall Risk: 11/03/25 Dental Screening Dental Screen Date: 11/03/25 Did you have a dental visit in the last 12 months?: Yes Did you have a dental problem in the last 6 months where you did not have access to dental care?: No Was dental information given to patient?: Patient has dentist HPI barium swallow results HPI Details The patient is a 70 year old female presenting for follow-up on barium swallow results. She has been experiencing a sensation of food getting stuck, although her symptoms are not as severe recently. She reports that this sensation can occur with any food, such as a small bite of a sandwich, and requires her to drink a lot of water to get it down. The patient reports being afraid to eat much due to this issue and has subsequently experienced unintentional weight loss, with her weight dropping from 129 lbs last year to 113 lbs since her last visit. She denies any choking episodes. The patient also reports pain in the back of her neck. The recent barium swallow showed a normal swallowing reflex, no fixed obstruction, no mass, no reflux, and no hiatal hernia. No fixed stricture or stenosis is identified.. There is temporary holdup of the barium tablet at the level of the upper thoracic esophagus, which passes with subsequent swallows of water. Further evaluation with an endoscopy is indicated. Patient also reports some stiffness in occasional pain in posterior neck present now for the last several weeks [facility] Medical History (Updated 11/07/25 @ 03:15 by Kayla Parekh MD) Dry skin dermatitis Anxiety Osteopenia of left femoral neck Menopause Dyslipidemia Essential hypertension Surgical History History of appendectomy Family History Father HTN (hypertension) Oral cancer Raynauds phenomenon Mother HTN (hypertension) Alcoholism Breast cancer Maternal Grandmother Alcoholism Sister No problems noted. Social History Alcohol intake: current Patient Tobacco Use Status: Former Tobacco user e-Cigarette/Vaping Use: Never Used Second Hand Smoke Exposure: No Current occupational status: retired Hearing needs: No Vision needs: Yes Questionnaire PHQ-9 Over the last 2 weeks, how often have you been bothered by any of the following problems? 1. Little interest or pleasure in doing things: not at all 2. Feeling down, depressed, or hopeless: not at all 3. Trouble falling or staying asleep, or sleeping too much: not at all 4. Feeling tired or having little energy: not at all 5. Poor appetite or overeating: not at all 6. Feeling bad about yourself - or that you are a failure or have let yourself or your family down: not at all 7. Trouble concentrating on things, such as reading the newspaper or watching television: not at all 8. Moving or speaking so slowly that other people could have noticed. Or the opposite - being so fidgety or restless that you have been moving around a lot more than usual: not at all 9. Thoughts that you would be better off or of hurting yourself in some way: not at all Total score: 0 Depression Screening Interpretation: Negative Depression Screening Done: Yes Source: Developed by Drs. Markel Hernandez, Cydney Padgett, Javon Tinoco and colleagues, with an educational stefan from [employer]. Thrive Questionnaire Date Thrive assessed: 10/29/25 I am a: Patient What is your living situation today?: I have a steady place to live Within the past 12 months, did the food you bought not last and you didn't have the money to get more?: Never true Within the past 12 months, did you worry whether your food would run out before you got money to buy more?: Never true Do you have trouble paying for medicines?: No Do you have trouble getting transportation to medical appointments?: No Do you have trouble paying your heating and electricity bill?: No Do you have trouble taking care of your child, family member or friend?: No Do you have trouble with day-to-day activities such as bathing, preparing meals, shopping, managing finances, etc.?: No Are you currently unemployed and looking for a job?: No Are you interested in more education?: No Please select the resources that you would like help with: None Currently or been in a relationship where the following occur: No concerns reported THRIVE Score: 0 AUDIT C Alcohol Use Questionnaire (AUDIT-C) 1. How often do you have a drink containing alcohol?: Monthly or less 2. How many drinks containing alcohol do you have on a typical day when you are drinking?: 1 or 2 3. How often do you have six or more drinks on one occasion?: Never Total Score: 1 RAMONA-7 AMB Questionnaire RAMONA-7 Date RAMONA - 7 assessed: 11/03/25 Feeling nervous, anxious, or on edge: 0 = Not at all Not being able to stop or control worryin = Not at all Worrying too much about different things: 0 = Not at all Trouble relaxin = Not at all Being so restless that it is hard to sit still: 0 = Not at all Becoming easily annoyed or irritable: 0 = Not at all Feeling afraid as if something awful might happen: 0 = Not at all Total RAMONA-7 score (0-4 normal; 5-9 mild; 10-14 moderate; 15-21 severe): 0 Source: Developed by Drs. Markel Hernandez, Cydney Padgett, Javon Tinoco and colleagues, with an educational stefan from [employer]. RAMONA-7 Assessment Billing RAMONA-7 Assessment Tool: RAMONA-7 Assessment 60453 Review of Systems Const All systems reviewed & are unremarkable except as noted in HPI and below Physical exam (Primary Care) Vital Signs: Last Vital Signs Temp 98.1 F 11/03/25 11:30 Pulse 53 11/03/25 11:30 Resp 16 11/03/25 11:30 BP 104/60 11/03/25 11:30 Pulse Ox 100 11/03/25 11:30 Oxygen Delivery Method Room Air 11/03/25 11:30 BMI result Body Mass Index 18.6 Tobacco/Smoking Status: Tobacco use Status Tobacco use date assessed 11/03/25 11/03/25 11:36 Patient Tobacco Use Status Former Tobacco user 11/03/25 11:36 e-Cigarette/Vaping Use Never Used 11/03/25 11:36 PHQ-9: PHQ-9 Score PHQ-9: Total score 0 11/03/25 12:02 Depression Screening Interpretation: Negative Thrive Assessment: Date of Thrive Assessment Date Thrive assessed 10/29/25 11/03/25 11:36 Currently or been in a relationship where the following occur: No concerns reported Const General: no acute distress Orientation/consciousness: patient oriented x3 HENMT Mouth: Normal oral and palatal mucosa present, oropharynx normal and moist mucous membranes Neck Neck: Yes full ROM, Yes no lymphadenopathy and Yes supple Resp Auscultation: clear to auscultation bilaterally Cardio Rate: regular rate Rhythm: regular rhythm Heart sounds: S1 normal heart sound present and S2 normal heart sound present GI Palpation (GI): Soft to palpation, nontender and no masses Auscultation: normal bowel sounds Neuro General: patient oriented x3 Coding Level of Care Code Est Pt Level 4 (85815) Diagnoses Esophageal dysphagia R13.19 Dysphagia type: esophageal phase Cervicalgia M54.2 Additional Codes RAMONA-7 Assessment Billing - RAMONA-7 Assessment Tool: RAMONA-7 Assessment 44410 ([id number]) Assessment & Plan Assessment & Plan (1) Dysphagia: Code(s): R13.10 - Dysphagia, unspecified Category: Medical Qualifiers: Dysphagia type: esophageal phase Qualified Code(s): R13.19 - Other dysphagia Plan: Results of barium swallow discussed with patient, will refer to GI Clinic for an upper endoscopy evaluation (2) Cervicalgia: Code(s): M54.2 - Cervicalgia Plan: X-ray of cervical spine ordered to check and see if there is any extrinsic factors causing any impediment in swallowing Orders: Orders XR cervical spine min 6V 11/03/25 M54.2 - Cervicalgia Referrals Gastroenterology Referral K22.2 - Esophageal obstruction, T18.128A - Food in esophagus causing other injury, initial encounter
== END 2025-11-03 12:18 | disposition home or self-care (01) ==
LOC: HO.HMCC 10:57
PROVIDERS: PCP Internal Medicine; Visit Provider Internal Medicine
DX: R13.19 Other dysphagia (principal); M54.2 Cervicalgia

== ENCOUNTER → 2025-11-03 12:09 | Outpatient (BNV) | payer MEDICARE, SELFPAY | PROVIDERS: PCP Internal Medicine; Visit Provider Radiology Diagnostic Ultrasound | DX: M47.812 Spondylosis without myelopathy or radiculopathy, cervical region (principal); M48.02 Spinal stenosis, cervical region | CPT/HCPCS: 72052 ==

== ENCOUNTER 2025-11-10 15:21 | Outpatient (AMB) | payer MEDICARE, SELFPAY ==
[2025-11-10 15:51] VITALS: BP 136/70; PULSE 88; RESP 16; TEMP 36.8; O2SAT 96; BMI 19.0
--- NOTE | 2025-11-10 15:51 | MHC.PC.OV ---
Vital Signs 11/10/25 15:51 Height 5 ft 5 in Weight 114 lb BMI 19.0 BP 136/70 Blood Pressure Location Rt brachial Position Sitting Respiration 16 Pulse 88 Pulse Source Pulse Oximeter Temp 98.2 F Temp Source Oral Pulse Oximetry (%) 96 Oxygen Delivery Method Room Air Intake Visit Reasons: f/up - re-scheduled from 11/05/25 Intake Note: Pt is here today for her f/u Scoring Machine Operator Required: No Allergies No Known Allergies Allergy (Verified 11/10/25 15:51) Medication List - Last Reconciled 11/17/25 by Kayla Parekh MD lisinopril-hydrochlorothiazide 10-12.5 mg 1 tab PO DAILY lorazepam 0.5 mg PO DAILY PRN Tobacco use date assessed: 11/10/25 Last assessed Fall Risk: 11/10/25 Dental Screening Dental Screen Date: 11/10/25 Did you have a dental visit in the last 12 months?: Yes Did you have a dental problem in the last 6 months where you did not have access to dental care?: No Was dental information given to patient?: Patient has dentist HPI f/up - re-scheduled from 11/05/25 HPI Details 70-year-old lady with history of hypertension, here today for her follow-up. She is currently taking lisinopril-HCTZ 10-12.5 mg tablet taken once a day. Compliant with taking her medications, and has been trying to adhere to a low-salt diet. Her blood pressure today is slightly higher than last check but still within normal limits. Denies any headache, no chest pain or palpitations. She takes lorazepam as needed for acute attacks or anxiety. Barium swallow showed a smooth impression on the posterior aspect of the esophagus in the region of the lower cervical spine, probably related to the cricopharyngeal muscle. No fixed stricture or stenosis is identified. However there was a temporary holdup of the barium tablet at the level of the upper thoracic esophagus, which passes with subsequent swallows of water. Still having occasional difficulty swallowing. She already has an appointment to see GI for possible upper endoscopy at the end of the month.. X-ray of cervical spine showed presence of cervical spondylosis.Apparent bilateral neural foramen narrowing, could be related to positioning/technique. [facility] Medical History Dry skin dermatitis Anxiety Osteopenia of left femoral neck Menopause Dyslipidemia Essential hypertension Surgical History History of appendectomy Family History Father HTN (hypertension) Oral cancer Raynauds phenomenon Mother HTN (hypertension) Alcoholism Breast cancer Maternal Grandmother Alcoholism Sister No problems noted. Social History Alcohol intake: current Patient Tobacco Use Status: Former Tobacco user e-Cigarette/Vaping Use: Never Used Second Hand Smoke Exposure: No Current occupational status: retired Hearing needs: No Vision needs: Yes Questionnaire Thrive Questionnaire Date Thrive assessed: 10/29/25 I am a: Patient What is your living situation today?: I have a steady place to live Within the past 12 months, did the food you bought not last and you didn't have the money to get more?: Never true Within the past 12 months, did you worry whether your food would run out before you got money to buy more?: Never true Do you have trouble paying for medicines?: No Do you have trouble getting transportation to medical appointments?: No Do you have trouble paying your heating and electricity bill?: No Do you have trouble taking care of your child, family member or friend?: No Do you have trouble with day-to-day activities such as bathing, preparing meals, shopping, managing finances, etc.?: No Are you currently unemployed and looking for a job?: No Are you interested in more education?: No Currently or been in a relationship where the following occur: No concerns reported THRIVE Score: 0 AUDIT C Alcohol Use Questionnaire (AUDIT-C) 1. How often do you have a drink containing alcohol?: Monthly or less 2. How many drinks containing alcohol do you have on a typical day when you are drinking?: 1 or 2 3. How often do you have six or more drinks on one occasion?: Never Total Score: 1 RAMONA-7 AMB Questionnaire RAMONA-7 Date RAMONA - 7 assessed: 11/03/25 Source: Developed by Drs. Markel Hernandez, Cydney Padgett, Javon Tinoco and colleagues, with an educational stefan from [employer]. Review of Systems Const Denies body aches, Denies fatigue, Denies fever(s), Denies headache(s) and Denies weakness Eyes Denies change in vision ENT Denies dizziness and Denies headache(s) Card Denies chest pain, Denies lightheadedness, Denies palpitations and Denies dyspnea Resp Denies cough, Denies dyspnea and Denies wheezing GI Denies abdominal pain, Denies change in bowel habits and Denies heartburn Denies hematuria, Denies urinary frequency, Denies dysuria and Denies urinary urgency Neuro Denies dizziness, Denies headache(s) and Denies weakness Endo Denies fatigue, Denies polydipsia, Denies polyuria and Denies palpitations Junior/Lymph Denies easy bruising Aller/Immun Denies seasonal rhinorrhea and Denies wheezing Physical exam (Primary Care) Vital Signs: Last Vital Signs Temp 98.2 F 11/10/25 15:51 Pulse 88 11/10/25 15:51 Resp 16 11/10/25 15:51 BP 136/70 11/10/25 15:51 Pulse Ox 96 11/10/25 15:51 Oxygen Delivery Method Room Air 11/10/25 15:51 BMI result Body Mass Index 19.0 Tobacco/Smoking Status: Tobacco use Status Tobacco use date assessed 11/10/25 11/10/25 15:56 Patient Tobacco Use Status Former Tobacco user 11/10/25 15:56 e-Cigarette/Vaping Use Never Used 11/10/25 15:56 Thrive Assessment: Date of Thrive Assessment Date Thrive assessed 10/29/25 11/10/25 15:56 Currently or been in a relationship where the following occur: No concerns reported Const Other: Accompanied by General: comfortable, no acute distress, alert and well groomed Orientation/consciousness: patient oriented x3 HENMT Mouth: Normal oral and palatal mucosa present, oropharynx normal and moist mucous membranes Neck Neck: Yes full ROM, Yes no lymphadenopathy and Yes supple Resp Auscultation: clear to auscultation bilaterally Cardio Rate: regular rate Rhythm: regular rhythm Heart sounds: S1 normal heart sound present and S2 normal heart sound present GI Palpation (GI): Soft to palpation, nontender and no masses Auscultation: normal bowel sounds General: Yes no CVA tenderness Back/Spine/Pelvis Back: no CVA tenderness and No back tenderness Skin General skin exam: no rashes or lesions noted Neuro General: patient oriented x3, gait normal, moves all extremities, Normal light touch and pain sensation and no focal motor deficits Extrem General: Yes normal to inspection, Yes full ROM, Yes no joint enlargement and Yes normal gait Psych Appearance: grossly normal and well kempt Mental Status: mental status grossly normal Speech and movement: Normal speech and movement present Affect: normal affect Coding Level of Care Code Est Pt Level 4 (09055) Diagnoses Anxiety F41.9 Essential hypertension I10 Abnormal barium swallow R93.3 Assessment & Plan Assessment & Plan (1) Anxiety: Code(s): F41.9 - Anxiety disorder, unspecified Category: Medical Plan: Takes lorazepam only as needed for acute anxiety attacks, refill sent (2) Essential hypertension: Code(s): I10 - Essential (primary) hypertension Category: Medical Plan: Continue with lisinopril-HCTZ 10-12.5 mg tablet once a day. Reinforced importance of following a low sodium diet, getting regular exercise, and lowering stress levels. (3) Abnormal barium swallow: Code(s): R93.3 - Abnormal findings on diagnostic imaging of other parts of digestive tract Plan: Has an appointment already scheduled with GI specialist at the end of the month. Advised to chew food well, followed it with a glass of water and remain upright , do not lie down right away after eating Medications: Refilled lisinopril-hydrochlorothiazide 10-12.5 mg 1 tab PO DAILY 90 tabs 1RF lorazepam 0.5 mg PO DAILY PRN 20 tabs 0RF anxiety F41.9 - Anxiety disorder, unspecified
--- OUTSIDE RECORDS SUMMARY | 2025-11-10 18:26 | XMS_ITS | Patient Health Record ---
Author Organization [facility] Address [address] [place] [address] Care Team Providers Care Locomotive Observer Name Role Phone Izabella ESCAMILLA, Kayla Primary Care Provider Alicia Jenkins Jr, Chris Bhatia Allergies Allergen (clinical drug ingredient) Drug/Non Drug [...] Status Risk Notes Problem Colon cancer screening (894161121) Colon cancer screening (Z12.11) Active confirmed Problem Pre-procedure evaluation check (113136552) Encounter for other preprocedural examination (Z01.818) Active confirmed Plan Of Treatment Future Test Test Name Order Date COLONOSCOPY 02/22/2017 Next Appt Details Provider Name:Chris faith Jr, 11/19/2025 08:40:00 AM, [address], [address], [place], [address], Insurance Providers Payer Name Payer Address Payer Phone Subscriber Number Group Number Insured Name Patient Relationship to Insured Coverage Start Date Coverage End Date [facility] [address] [id number] RAISA DIAZ Self - patient is the insured Medical (General) History Medical History History ICD Code colonoscopy 08-10-2007 hypertension Denies OR,DM,CVA,Lung disease,renal dise ase Surgical History Surgery Date(Month/Year) appendectomy oral surgery
== END 2025-11-10 16:56 | disposition home or self-care (01) ==
LOC: HO.HMCC 15:22
PROVIDERS: PCP Internal Medicine; Visit Provider Internal Medicine
DX: F41.9 Anxiety disorder, unspecified (principal); I10 Essential (primary) hypertension; R93.3 Abnormal findings on diagnostic imaging of other parts of digestive tract

== ENCOUNTER → 2025-11-10 15:21 | Outpatient (BNVA) | payer MEDICARE, SELFPAY | PROVIDERS: PCP Internal Medicine; Visit Provider Internal Medicine | DX: F41.9 Anxiety disorder, unspecified (principal); I10 Essential (primary) hypertension; R93.3 Abnormal findings on diagnostic imaging of other parts of digestive tract; Z87.891 Personal history of nicotine dependence | CPT/HCPCS: 99212 ==